=== PATIENT | male | born 1945 | race Caucasian/White ===

== ENCOUNTER → 2017-09-19 08:11 | Outpatient (CLI) | payer MEDICARE, BC, SELFPAY ==
[2017-09-19 08:54] LABS: Absolute Lymphocyte Count 1.43 X10^3/ul (0.83-4.51); Absolute Neutrophil Count 4.1 X10^3/uL (2.0-7.7); Basophil# 0.02 X10^3/uL; Basophil% 0.3 % (0-1); Eosinophil# 0.11 X10^3/uL; Eosinophils% 1.7 % (0-5); Hematocrit 43.1 % (40-54); Hemoglobin 14.2 g/dl (13.0-16.5); Lymphocyte # 1.43 X10^3/ul (4.0); Lymphocyte % 22.7 % (19-41); Mean Corp Hgb Conc 32.9 g/gl (32-36); Mean Corpuscular Hgb 31.9 pg (27.0-32.0); Mean Corpuscular Volume 96.9 fL (80-94); Mean Platelet Vol. 10.7 fl (6.2-12.0); Monocyte# 0.66 X10^3/uL; Monocyte% 10.5 % (0-10); Neutrophil # 4.07 X10^3/uL (2.7-7.7); Neutrophil % 64.6 % (47-70); POSITIVE COUNT NO; POSITIVE DIFFERENTIAL NO; POSITIVE MORPHOLOGY NO; Platelet Count 185 K/mm3 (150-450); RBC Distribution Width CV 14.1 % (11.6-14.6); RBC Distribution Width SD 50.5 fl (35.1-43.9); Red Blood Count 4.45 M/mm3 (4.6-6.2); White Blood Count 6.3 K/mm3 (4.4-11.0)
[2017-09-19 09:22] LABS: ALB/GLOB Ratio 1.2 RATIO (0.9-2.4); AST(SGOT) 19 U/L (15-37); Alanine Aminotransfer ALT/SGPT 29 U/L (16-61); Albumin, Serum 3.7 g/dL (3.2-5.0); Alkaline Phosphatase 55 U/L (45-117); Anion Gap 6 (5-15); BUN 16 mg/dL (7-18); Calcium,Total 8.7 mg/dL (8.5-10.1); Chloride 105 mmol/L (98-107); Cholesterol 193 mg/dL (200); Creatinine, Serum 0.94 mg/dL (0.70-1.30); EST Glomerular Filtration Rate 84 mL/min (>60); Est Glom Filt Rate - Afr Amer 101 mL/min (>60); Globulin 3.2 g/dL (2.2-4.2); Glucose 92 mg/dL (74-106); High Density Lipoprotein 79 mg/dL; Potassium 4.3 mmol/L (3.5-5.1); Protein, Total 6.9 g/dL (6.4-8.2); Sodium Level 139 mmol/L (136-145); Triglycerides 55 mg/dL; Uric Acid 5.4 mg/dL (3.5-7.2); Very Low Density Lipoprotein 11 mg/dL (5-40)
== END ==
LOC: LAB.FUTURE 03-22 00:32 → BFHLAB 04-04 10:33
PROVIDERS: Family Provider Family Medicine; PCP Family Medicine; Visit Provider Family Medicine
DX: Z00.00 Encounter for general adult medical examination without abnormal findings (principal); Z12.5 Encounter for screening for malignant neoplasm of prostate; M10.9 Gout, unspecified; I10 Essential (primary) hypertension
CPT/HCPCS: 36415; 80053; 80061; 84153; 84550; 85025; G0103

== ENCOUNTER → 2018-09-16 06:50 | Outpatient (CLI) | payer MEDICARE, BC, SELFPAY ==
[2018-09-16 07:34] LABS: Absolute Lymphocyte Count 1.71 X10^3/ul (0.83-4.51); Absolute Neutrophil Count 2.5 X10^3/uL (2.0-7.7); Basophil# 0.02 X10^3/uL; Basophil% 0.4 % (0-1); Eosinophil# 0.11 X10^3/uL; Eosinophils% 2.3 % (0-5); Hemoglobin 13.7 g/dl (13.0-16.5); Lymphocyte # 1.71 X10^3/ul (4.0); Lymphocyte % 35.6 % (19-41); Mean Corp Hgb Conc 33.4 g/gl (32-36); Mean Corpuscular Hgb 31.9 pg (27.0-32.0); Mean Corpuscular Volume 95.6 fL (80-94); Mean Platelet Vol. 10.7 fl (6.2-12.0); Monocyte# 0.51 X10^3/uL; Monocyte% 10.6 % (0-10); Neutrophil # 2.45 X10^3/uL (2.7-7.7); Neutrophil % 50.9 % (47-70); Platelet Count 193 K/mm3 (150-450); RBC Distribution Width CV 14.1 % (11.6-14.6); Red Blood Count 4.29 M/mm3 (4.6-6.2); White Blood Count 4.8 K/mm3 (4.4-11.0)
[2018-09-16 07:37] LABS: POSITIVE COUNT NO; POSITIVE DIFFERENTIAL NO; POSITIVE MORPHOLOGY NO
[2018-09-16 08:07] LABS: ALB/GLOB Ratio 1.1 RATIO (0.9-2.4); AST(SGOT) 20 U/L (15-37); Alanine Aminotransfer ALT/SGPT 28 U/L (16-61); Albumin, Serum 3.5 g/dL (3.2-5.0); Alkaline Phosphatase 55 U/L (45-117); Anion Gap 5 (5-15); BUN 15 mg/dL (7-18); BUN/Creat Ratio 13.9 RATIO (10-20); Calcium,Total 8.6 mg/dL (8.5-10.1); Chloride 108 mmol/L (98-107); Cholesterol 187 mg/dL (200); Creatinine, Serum 1.08 mg/dL (0.70-1.30); EST Glomerular Filtration Rate 71 mL/min (>60); Est Glom Filt Rate - Afr Amer 86 mL/min (>60); Globulin 3.2 g/dL (2.2-4.2); Glucose 90 mg/dL (74-106); High Density Lipoprotein 67 mg/dL; PSA,Total - Annual Screen 0.62 ng/mL (0.00-4.00); Potassium 4.2 mmol/L (3.5-5.1); Protein, Total 6.7 g/dL (6.4-8.2); Sodium Level 141 mmol/L (136-145); Thyroid Stim Hormone (TSH) 2.77 uIU/mL (0.358-3.74); Triglycerides 114 mg/dL; Very Low Density Lipoprotein 23 mg/dL (5-40)
== END ==
PROVIDERS: Family Provider Family Medicine; PCP Family Medicine; Referring Provider Family Medicine; Visit Provider Family Medicine
DX: I10 Essential (primary) hypertension (principal); M10.9 Gout, unspecified; E01.0 Iodine-deficiency related diffuse (endemic) goiter; Z12.5 Encounter for screening for malignant neoplasm of prostate
CPT/HCPCS: 36415; 80053; 80061; 84153; 84443; 84550; 85025; G0103

== ENCOUNTER → 2019-06-12 08:53 | Outpatient (CLI) | payer MEDICARE, BC, SELFPAY ==
--- NOTE | 2019-06-12 08:56 | RAD_ITS ---
STUDY: X-RAY - LEFT KNEE REASON FOR EXAM: Male, 73 years old. CHRONIC MEDIAL PAIN TECHNIQUE: 4 view(s) of the knee. COMPARISON: Prior study of July 08, 2014 FINDINGS: Normal visualized distal femur. Normal visualized proximal tibia and fibula. Normal proximal tibiofibular articulation. There are moderately severe degenerative changes with severe joint space narrowing of the medial knee compartment. Normal lateral femorotibial compartment. There is mild degenerative arthrosis of the patellofemoral articulation. There is a soft tissue prominence in the suprapatellar region suggesting a small volume joint effusion. The soft tissue structures are unremarkable. RAD/Knee 4 or More Views IMPRESSION: Degenerative changes with severe joint space narrowing of the medial knee compartment. Findings have worsened in the interval. Mild degenerative changes of the patellofemoral compartment. Small suprapatellar effusion. Electronically Signed: Rajendra Parks MD at 17:42 EST , Service support ,
== END ==
PROVIDERS: PCP Family Medicine; Visit Provider Family Medicine
DX: M17.12 Unilateral primary osteoarthritis, left knee (principal)
CPT/HCPCS: 73564

== ENCOUNTER → 2019-08-11 10:00 | Outpatient (CLI) | payer MEDICARE, BC, SELFPAY ==
--- NOTE | 2019-08-08 08:06 | PCM.HP.BLA ---
History and Physical History and Physical [facility] Patient Name: Butch Galvez : 1945 From: GOOD RODRÍGUZE PA-C DATE OF SURGERY: 08/20/2019 SCHEDULED PROCEDURE: left total knee arthroplasty HISTORY OF PRESENT ILLNESS: Preoperative history and physical exam was performed on August 07, 2019. This is a 74-year-old male who has been having ongoing pain and in his left knee for several years. He states it has been progressively becoming worse. Pain is a 5/10. Pain is increased with going up and down stairs, driving, walking, standing. Patient's pain is primarily of the medial aspect of the knee. Pain does waken him at night. Patient has had previous conservative measures consisting of aspiration and cortisone injection previous bracing. Patient does report clicking and cracking sensation with walking. Patient works out 3 times a week at [facility]. Patient currently denies any recent chest pain, shortness breath, fevers chills, recent infections. Patient has medical history pertinent for hypertension. We'll obtain surgical clearance from the primary care physician Dr. Lantigua. After failing conservative measures and discussing treatment options a Dr. Robbie Andrews, the patient does wish to proceed with a left total knee arthroplasty. REVIEW OF SYSTEMS: ROS: Const: Denies anorexia, anxiety, change in appetite, fever and weight change,and vision problems. CV: Denies chest pain, heart murmur, irregular heartbeat and peripheral vascular disease. Resp: Denies asthma, cough, pneumonia, sleep apnea, shortness of breath, tuberculosis and wheezing. GI: Denies constipation, diarrhea, heartburn, nausea, bloody stools and vomiting, and difficulty swallowing. : Denies incontinence. Musculo: Denies weakness and limp. Reports leg swelling, trouble walking. Skin: Denies Raynaud's, history of shingles and tattoo. Neuro: Denies ambulatory dysfunction, dizziness, numbness/tingling and tremor. Psych: Denies anxiety, depression, insomnia, mental illness and stress. Mata/Lymph: Denies anemia, bleeding/bruising tendency and past transfusion. Reviewed and updated. PAST MEDICAL HISTORY: Advance Care Plan: No Advance Directives Effective Date: 07/10/2019 PMH: Medical Problems: Gout - occasional High Blood Pressure Accidents: Fracture - (2005) LT ANKLE Surgical Hx: None Anesthesia Complications: None Assistive Devices: Hearing Aid Reviewed and updated. 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 Personal Habits: Cigarette Use: Former.Smokeless Tobacco: Never Used Smokeless Tobacco.E-Cigarette Use: Never used.Alcohol: Occasionally.Drug Use: Denies Use.Enjoy Exercising: Exercises 1-3 X/Week. Reviewed and updated. VITALS: Ht: 66 Wt: 210lb 2oz Wt k.313 BMI: 33.9 BP: 130/78 Pulse: 76 Resp: 20 T: 98.3 T: 36.8C ALLERGIES: No Known Drug Allergy MEDICATIONS: Metoprolol Succinate ER 25 mg 1 by mouth every day, Lisinopril 5 mg 1 by mouth every day, Allopurinol 100 mg 1 by mouth every day, Move Free Joint Health Advanced 1 by mouth DAILY, Vitamin D3 1000 Unit 1x/day by mouth PRE-OP EXAM: General appearance:NORMAL Other: Eyes: Conjunctivae and lids: NORMAL Pupils: ERR Ears, Nose, Mouth, and Throat: NORMAL Other: Inspection of lips, teeth and gums: NORMAL Other: Neck: Examination of neck: no masses noted. Respiratory: Assessment of respiratory effort: NORMAL Other: Auscultation of lungs: clear to auscultation no wheezes, rhonchi or rales. Cardiovascular: Auscultation of heart: regular rate and rhythm, no murmurs, gallops or rubs. Exam of carotid arteries: NORMAL Other: Gastrointestinal: Exam of abdomen: soft, nontender, nondistended bowel sounds present. PHYSICAL EXAMINATION: Patient walks with an antalgic gait. Patient has varus deformity. Left knee is cool to touch without erythema. There is tenderness to palpation over the medial joint line. Positive effusion. Correctable varus alignment. Stable to varus and valgus stress test. Range of motion with the left knee: 0 of extension and 110 flexion. IMAGING STUDIES: X-rays of the left knee reveal varus alignment with medial joint space narrowing, subchondral sclerosis, osteophyte formation consistent with left knee osteoarthritis. IMPRESSION: 1. Left knee osteoarthritis 2. Hypertension 3. History of gout PLAN: Dr. Robbie Andrews did discuss and review with the patient all treatment options including surgical versus nonsurgical options. Patient does wish to proceed with the above-stated procedure. Potential risks, benefits, and complications of the procedure were discussed in detail including but not limited to , infection, nerve and blood vessel damage, persistent pain, numbness, tingling, paresthesias, blood clot, pulmonary embolism, and requirement for possible further surgery. The patient expressed full understanding and has no further questions for the doctor. Patient does agree to proceed with the above-stated procedure and has signed the surgery consent form. This dictation was created using voice recognition software. Phonetic and/or grammatical errors may exist. ___ I have re-examined the patient. There are no clinical changes since date of exam. ___ See progress notes for changes. ___ Dictated on admission Date: Time: Signature:
[2019-08-11 09:58] VITALS: BP 149/89; PULSE 66; RESP 16; TEMP 36.7; O2SAT 97; BMI 34.4
[2019-08-11 10:44] LABS: Absolute Lymphocyte Count 1.53 X10^3/uL (0.83-4.51); Absolute Neutrophil Count 3.7 X10^3/uL (2.0-7.7); Basophil# 0.04 X10^3/uL; Basophil% 0.7 % (0-1); Eosinophil# 0.11 X10^3/uL; Eosinophils% 1.9 % (0-5); Hematocrit 41.9 % (40-54); Hemoglobin 13.8 g/dL (13.0-16.5); Lymphocyte # 1.53 X10^3/ul (4.0); Lymphocyte % 25.9 % (19-41); Mean Corp Hgb Conc 32.9 g/dL (32-36); Mean Corpuscular Hgb 32.2 pg (27.0-32.0); Mean Corpuscular Volume 97.7 fL (80-94); Mean Platelet Vol. 10.7 fl (6.2-12.0); Monocyte# 0.51 X10^3/uL; Monocyte% 8.6 % (0-10); NRBC Flagged by Analyzer 0 % (0-5); Neutrophil # 3.71 X10^3/uL (2.7-7.7); Neutrophil % 62.7 % (47-70); Platelet Count 199 K/mm3 (150-450); RBC Distribution Width CV 13.2 % (11.6-14.6); Red Blood Count 4.29 M/mm3 (4.6-6.2); White Blood Count 5.9 K/mm3 (4.4-11.0)
[2019-08-11 11:19] LABS: Anion Gap 5 (5-15); BUN 23 mg/dL (7-18); BUN/Creat Ratio 21.5 RATIO (10-20); Calcium,Total 8.7 mg/dL (8.5-10.1); Chloride 107 mmol/L (98-107); Creatinine, Serum 1.07 mg/dL (0.70-1.30); EST Glomerular Filtration Rate 72 mL/min (>60); Est Glom Filt Rate - Afr Amer 87 mL/min (>60); Estimated Creatinine Clearance 53.83 ml/min; Glucose 93 mg/dL (74-106); Potassium 4.3 mmol/L (3.5-5.1); Sodium Level 141 mmol/L (136-145)
== END ==
PROVIDERS: PCP Family Medicine; Referring Provider Specialist; Visit Provider Specialist
DX: Z01.818 Encounter for other preprocedural examination (principal); M17.12 Unilateral primary osteoarthritis, left knee
CPT/HCPCS: 80048; 85025; 87081

== ENCOUNTER → 2019-08-11 10:34 | Outpatient (CLI) | payer MEDICARE, BC, SELFPAY ==
--- NOTE | 2019-08-11 10:37 | CT_ITS ---
STUDY: CT SCAN LOWER EXTREMITY LEFT REASON FOR EXAM: Male, 74 years old. Left knee varus deformity, pre-op PAULETTE plasty planning. No prior surgery. RADIATION DOSAGE (If Supplied By Facility): CTDIvol = ( 33.49 ) mGy, DLP = ( 2044.93 ) mGycm. Individualized dose optimization techniques were used for this CT.? TECHNIQUE: Multiple axial tomographic images of the hip joint, knee joint and ankle joint were obtained. Coronal and sagittal reconstructions obtained as well. COMPARISON: None. FINDINGS: There is evidence of calcific tendinitis overlying the greater tuberosity of the hip. There is a marked degree of joint space narrowing with spur formation of the medial compartment of the knee joint. Mild to moderate degree of degenerative changes of the patellofemoral joint. The ankle mortise is intact. Findings suggestive of old avulsion fracture of the medial malleolus. Incidental note is made of calcaneal spurs. CT/Extremity Lower without Contra IMPRESSION: Marked degree of a joint space narrowing and degenerative spurring along the medial compartment of the knee joint as well as moderate degree of osteoarthritis of the patellofemoral joint. Electronically Signed: Samuel Alcantara, at 14:08 EDT , Service support ,
== END ==
PROVIDERS: PCP Family Medicine; Referring Provider Specialist; Visit Provider Specialist
DX: M21.162 Varus deformity, not elsewhere classified, left knee (principal)
CPT/HCPCS: 73700

== ENCOUNTER 2019-10-01 08:18 | Day surgery (SDC) | payer MEDICARE, BC, SELFPAY ==
[2019-08-11 09:58] VITALS: BMI 34.4
--- NOTE | 2019-09-24 16:52 | PCM.HP.BLA ---
History and Physical History and Physical Patient Name: Butch Galvez : 1945 From: REBEKAH GRANDA NP DATE OF SURGERY: 10/01/2019 SCHEDULED PROCEDURE: Left total knee arthroplasty HISTORY OF PRESENT ILLNESS: Preoperative history and physical exam was performed on September 24, 2019. This 4-year-old male who has been having ongoing left knee pain for several years. He states it has been progressively becoming worse. The pain is 5 on a scale of 10. The pain is increased with going up and down stairs, driving, walking and standing. The pain is located in the medial aspect of the left knee. The pain does wake him at night. The patient does report clicking and cracking sensation with walking. The patient works out 3 times a week at [facility]. Previous treatments consist of aspiration and cortisone injections. He has attempted bracing. The patient currently denies chest pain, shortness of breath, fevers, chills or recent infections. The patient has a medical history pertinent for hypertension. Surgical clearance has been obtained from his primary care physician, Dr. Lantigua. After failing conservative measures and discussing treatment options with Dr. Robbie Andrews the patient does wish to proceed with a left total knee arthroplasty. REVIEW OF SYSTEMS: ROS: Const: Denies anorexia, anxiety, change in appetite, fever and weight change,and vision problems. CV: Denies chest pain, heart murmur, irregular heartbeat and peripheral vascular disease. Resp: Denies asthma, cough, pneumonia, sleep apnea, shortness of breath, tuberculosis and wheezing. GI: Denies constipation, diarrhea, heartburn, nausea, bloody stools and vomiting, and difficulty swallowing. : Denies incontinence. Musculo: Denies weakness and limp. Reports leg swelling, trouble walking. Skin: Denies Raynaud's, history of shingles and tattoo. Neuro: Denies ambulatory dysfunction, dizziness, numbness/tingling and tremor. Psych: Denies anxiety, depression, insomnia, mental illness and stress. Mata/Lymph: Denies anemia, bleeding/bruising tendency and past transfusion. 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 Personal Habits: Cigarette Use: Former.Smokeless Tobacco: Never Used Smokeless Tobacco.E-Cigarette Use: Never used.Alcohol: Occasionally.Drug Use: Denies Use.Enjoy Exercising: Exercises 1-3 X/Week. Reviewed, no changes - 09/24/2019 at 4:11 pm by Rebekah Granda VITALS: Ht: 66 Wt: 208lb Wt k.349 BMI: 33.6 BP: 137/81 Pulse: 71 Resp: 18 T: 97.7 T: 36.5C ALLERGIES: No Known Drug Allergy MEDICATIONS: Oxycodone HCL 5 mg 1-2 tab by mouth every 4 hours, Meloxicam 7.5 mg 1 by mouth twice a day, Promethazine HCL 12.5 mg 1-2 tablets by mouth every 6 hours, Famotidine 20 mg 1 by mouth every day, Metoprolol Succinate ER 25 mg 1 by mouth every day, Lisinopril 5 mg 1 by mouth every day, Allopurinol 100 mg 1 by mouth every day, Move Free Joint Health Advanced 1 by mouth DAILY, Vitamin D3 1000 Unit 1x/day by mouth PRE-OP EXAM: General appearance:NORMAL Other: Eyes: Conjunctivae and lids: NORMAL Pupils: ERR Ears, Nose, Mouth, and Throat: NORMAL Other: Inspection of lips, teeth and gums: NORMAL Other: Respiratory: Assessment of respiratory effort: NORMAL Other: Auscultation of lungs: clear to auscultation no wheezes, rhonchi or rales. Cardiovascular: Auscultation of heart: regular rate and rhythm, no murmurs, gallops or rubs. Gastrointestinal: Exam of abdomen: soft, nontender, nondistended bowel sounds present. Neurological: see below Psychiatric: Orientation to time, place and person: NORMAL Other: Mood and affect: NORMAL Other: PHYSICAL EXAMINATION: The patient walks with an antalgic gait. Patient has varus deformity. Left knee is cool to touch without erythema. Tenderness to palpation over the medial joint line. Positive effusion. Correctable varus alignment. Stable to varus valgus stress test. Range of motion: 0 extension to 110 flexion. IMAGING STUDIES: X-rays of left knee obtained on June 12, 2019 reveal varus alignment with medial joint space narrowing, subchondral sclerosis, osteophyte formation consistent with left knee osteoarthritis. IMPRESSION: 1. Left knee osteoarthritis 2. Hypertension 3. History of gout PLAN: Dr. Robbie Andrews did discuss with patient all treatment options including surgical versus nonsurgical options. The patient does wish to proceed with a left total knee arthroplasty. Potential risk, benefits and complications of the procedure were discussed in detail including but not limited to , infection, nerve and blood vessel damage, persistent pain, numbness, tingling, paresthesias, blood clot, pulmonary embolism and requirement for possible further surgery. The patient expressed full understanding and has no further questions for the doctor. The patient does agree to proceed with the above-stated procedure and has signed the surgery consent form. Discussed with the patient the current risk associated with the COVID-19 virus includes risk of exposure while at the hospital. The patient was reassured local hospitals have low infection rates and have taken all necessary precautions to limit patient exposure to COVID-19. Limiting the patient's time in the hospital may decrease their exposure to COVID-19. Patient was notified that we will need to comply with any screening or testing the hospital wishes to perform or that surgery may be delayed for any positive results. This dictation was created using voice recognition software. Phonetic and/or grammatical errors may exist. ___ I have re-examined the patient. There are no clinical changes since date of exam. ___ See progress notes for changes. ___ Dictated on admission Date: Time: Signature:
[2019-10-01] VITALS (9 sets, daily range): BP systolic 128–149; BP diastolic 75–85; PULSE 66–80; RESP 16; TEMP 35.8–37.1; O2SAT 96–100; BMI 33.9
[2019-10-01] MEDS: Lactated Ringers 1,000 ML 125 ML IV (07:00)
[2019-10-01] MEDS: Lactated Ringers 1,000 ML 999 ML IV ×2 (07:00→09:06)
--- NOTE | 2019-10-01 07:18 | RAD_ITS ---
STUDY: X-RAY - LEFT KNEE REASON FOR EXAM: Male, 74 years old. Post op tkr TECHNIQUE: AP and lateral view(s) of the knee. COMPARISON: Comparison is made with prior study dated December 11, 2019. FINDINGS: Normal visualized distal femur. Normal visualized proximal tibia and fibula. Normal proximal tibiofibular articulation. The patient is status post total knee replacement. There is good alignment. Postoperative soft tissue changes. RAD/Knee 1 or 2 Views IMPRESSION: Status post total knee replacement. There is good alignment. Postoperative soft tissue swelling. Electronically Signed: Samuel Alcantara, at 13:55 EDT , Service support ,
[2019-10-01 08:55] LABS: Bedside Glucose 69 mg/dL (70-110)
[2019-10-01] MEDS: Acetaminophen 500 MG Tablet 1000 MG PO (09:04)
[2019-10-01] MEDS: Gabapentin 600 MG Tablet PO (09:05)
[2019-10-01] MEDS: Celecoxib 200 MG Capsule 400 MG PO (09:05)
[2019-10-01] MEDS: Lactated Ringers 1,000 ML 75 ML IV (09:55)
[2019-10-01] MEDS: Cefazolin 2 GM in 0.9% Normal Saline 100 ML IV (10:55)
--- NOTE | 2019-10-01 12:23 | OP.PCM_ITS ---
Report of Operation Date of Procedure: 10/01/19 Pre-Operative Diagnosis: Left knee primary osteoarthritis Post-Operative Diagnosis: Left knee primary osteoarthritis Surgery/Procedure Performed:: Left knee minimally invasive robotic assisted total knee replacement Description of Surgical Findings:: Stable knee with good patella tracking sales development representative: Laisha Keane Type of Anesthesia:: Spinal Anesthesiologist: Thom Maxwell Special Medications: 2 g Ancef, 1 g TXA at incision, 1 g TXA closure, 10 mg Decadron, joint cocktail (5 mg Duramorph, 30 mL of 0.5% Ropivicaine, 1000 units of epinephrine, 30 mg of Toradol) Specimen's removed: Bony cuts Estimated Blood Loss (mL): 75 Fluids Replaced: 1200 mL crystalloid Description of Procedure: Implants used: 1. Melanie size 4 triathlon cruciate retaining distal femoral press-fit component 2. Ranger size 5 press-fit tritanium tibial baseplate 3. Ranger X3 9 mm CS polyethylene 4. Ranger X3 35 mm asymmetric patella Brief history operative indications: 74-year-old m with history of left knee osteoarthritis with radiographic findings with loss of joint space, osteophyte formation and subchondral sclerosis. Failed conservative measures as mentioned in the H&P. Discussion of total knee arthroplasty as well as risk and benefits were discussed the patient including but not limited to blood loss, DVTs, PEs, neurovascular damage, general risk of anesthesia including loss of life, and stiffness or instability were discussed with patient. Patient demonstrated understanding and was able to sign informed consent. Procedure: On the date of procedure patient's left lower extremity was marked in the preoperative area. The patient was then taken back to the operating room where the patient was placed on the table in the supine position. All bony prominences were identified a well-padded. Anesthesia assumed control of the C-spine and airway and remained controlled throughout the remainder of the procedure. A tourniquet was placed on the left upper thigh and the leg was prepped in a sterile fashion. The surgeon then scrubbed at this time .Upon reentering the room left lower extremity was draped in a standard orthopedic fashion. A timeout was then called and everyone agreed upon the side, the site, the procedure to be performed, patient's identity and antibiotics given. Esmarch bandage was used to exsanguinate the extremity and the tourniquet was placed up to 250 mmHg with the knee in flexion. A midline skin incision was made and sharp dissection was taken down through skin subcutaneous tissue and fat. The standard medial parapatellar incision was made and the patella was subluxed laterally. An Appropriate deep MCL release was done and the fat pad was resected. Our attention was then directed to the patella. The patella was everted and a flat resection was made. The knee was then flexed up in 2 femoral pins were placed inside the incision and 2 tibial pins were placed outside the incision in the medial tibia bicortically. Once this was completed the 2 checkpoints in the femur and tibia were placed. Knee was then flexed up and the bony landmarks were registered. Once this was completed knee was taken through range of motion and manually stressed allowing us to a plan for an appropriate tibial cut. The robotic arm was brought into the field sterilely and checkpoint and saw were registered. Based on the patient's deformity the tibial cut was made in 3 degrees varus. At this time the tensioner was then placed in the joint and ligament tension was checked at 90 degrees and full extension. Based on the patient's ligamentous tension appropriate adjustments were made to the operative plan and ligament releases were done. Once we were happy with our operative plan with balanced flexion and extension gaps our attention was directed to the femur. The robot was brought into the field sterilely and registered. Posterior condylar cuts, anterior chamfer cuts and anterior cuts were appropriately made for a size 4 femur. When these were completed the saws were switched out in the distal femoral and posterior chamfer cuts were made. Protecting the soft tissue throughout this time. A size 5 tibial base plate was selected. the knee was flexed to 90 degrees and the soft tissues and posterior osteophytes were removed from the joint. 40 cc of the periarticular injection was injected into the posterior medial corner of the joint. The appropriate trials were then placed on the femur and tibia. A trial polyethylene was trialed to ensure proper balancing and stability of the knee. The appropriate tibial internal rotation was then marked with a bovie. Our attention was then directed to the patella. The lug holes were drilled and the patella trial was placed. Patellar tracking was checked and deemed appropriate. Once we were happy lug holes were drilled for the femur and trial components were removed. the tibia was subluxed and pinned into place and the keel was punched and drilled appropriately. Final components were verified and opened, and cement was mixed in a vacuum. Ranger Simplex cement was used. The wound was copiously irrigated with normal saline. When the cement was ready the components were impacted into place starting with the tibia, femur and finally cementing the patella. The trial poly component was placed and the knee was placed in full extension. All excess cement was removed in the process. Once the cement had cured the tracking, alignment and balance were verified and a size 9 mm CS polyethylene component was placed. Once the final components were placed an Irrisept lavage was performed and the w ound was copiously irrigated with normal saline solution and the periarticular injection was given. The wound was closed in a layer damico fashion using #1 vicryl interrupted sutures for the arthrotomy, 2-0 interrupted Vicryl suture for the subcuticular layer and shelley for final skin closure. A sterile compressive dressing was then placed. The patient was then awakened from anesthesia, transferred to the [place] and transferred to the PACU for recovery. Post op plan DVT ppx: ASA 81mg BID, thigh high compression stockings Follow up: in office in 2 weeks for wound check PT: to start POD #0 at hospital, outpatient PT should be arranged. Plan is for patient have outpatient surgery today. Grafts/Implants Used: Melanie - Complications No intraoperative complications - Admit VTE Documentation VTE Present on Admission: No VTE Mechan Device Prophylaxis: SCD's, Thigh High TANIA Hose VTE Pharm Prophylaxis ordered?: Yes - You call the family
[2019-10-01] MEDS: Cefazolin 1 GM/50 ML BAG IV (15:15)
== END 2019-10-01 16:37 | disposition home or self-care (01) ==
LOC: SDC 08:20 → AC 08:21
PROVIDERS: PCP Family Medicine; Referring Provider Specialist; Visit Provider Specialist
PROC: 0SRD0JZ Replacement of Left Knee Joint with Synthetic Substitute, Open Approach (ICD-10-PCS; CPT 27447; principal; 2019-10-01 10:00)
DX: M17.12 Unilateral primary osteoarthritis, left knee (principal); I10 Essential (primary) hypertension; M10.9 Gout, unspecified; Z79.899 Other long term (current) drug therapy; Z87.891 Personal history of nicotine dependence
CPT/HCPCS: 01402; 27447; 64447; 76942; 73560; 82962; 97162; 97166; C1776; J7120

== ENCOUNTER 2019-11-21 09:55 | Outpatient (RCR) | payer MEDICARE, BC, SELFPAY ==
[2019-10-01 08:57] VITALS: BMI 33.9
== END 2019-11-21 19:00 | disposition home or self-care (01) ==
LOC: PT 09:55
PROVIDERS: PCP Family Medicine; Referring Provider Specialist; Visit Provider Specialist
DX: M62.562 Muscle wasting and atrophy, not elsewhere classified, left lower leg (principal); Z96.652 Presence of left artificial knee joint; R53.1 Weakness

== ENCOUNTER 2020-02-16 11:00 | Outpatient (RCR) | payer MEDICARE, BC, SELFPAY ==
[2019-10-01 08:57] VITALS: BMI 33.9
--- NOTE | 2020-02-17 09:55 | HP.PTEVAL_ITS ---
Patient's Visit Information SUJIT MCLEAN is a 74 year old M referred to Physical Therapy by JEAN Dalton with a diagnosis of Presence of L TKA. Date of Evaluation: 01/13/20 Physical Therapist: Clem Neal DPT - Visit Plan Frequency: 3x /Week Duration: 4 Weeks Plan: Pt. to be DC back to physician at this point in time. Pt. to be DC to HEP and gym exercises. - Subjective Pt. is here today for his initial evaluation with diagnosis of presence of artificial joint, L knee. Pt. had a arthroplasty in early september. Pt. reports overall doing well, but is still having increased pain with his initially movements. Pt. did her stint in his therapy with good progress, but started to have increased symptoms since progressing onto his own. Pt. reports continued gym exercises and exercises at home. Pt. reports increased pain with initial movements, but tends to get better after walking. He reports most of his pain is at medial knee both anteriorly and posteriorly. Pt. is hopfeul to reduce his symptoms in order to get back to all recreational and household work without increase in symptoms. - Pain L knee Pain Intensity (Out of 10): 1 Pain Intensity Range: 0, 8 Comment: 4/10 with the initial few steps with walking. - Objective POSTURE: Pt. has increased lateral wt. shifting to R side in stance. He has slight knee flexion of L knee in stance as well. He is able to extend his knee to full motion, but has increased pain doing so. PALPATION: PT. has slight tenderness at medial joint line and at posterior popliteal fossa. He has a marked difference in muscle girth from L to R of both thigh and calves. 1inch difference in gith between the two (L smaller). NEURO: Pt. has normal sensation and achilles DTR bilaterally. Pt. is able to complete heel and radha raises, but does have increased difficulty with LLE and mild increase in symptoms. ROM: L knee- 0-4-110deg. I was able to get him to full TKE with over pressure, but did have increased pain during this. Leather endfeel with knee flexion as well. TIght HS noted bilaterally. MMT: RLE- 5/5 throughout; except 4/5 hip abd and hip extension. LLE- ankle- 5/5 throughotu; except PF 4+/5- (fatigues rapidly), knee- ext 4+/5, flexion 4/5 mild increase NW; hip- flexion 4+/5, abd 4/5. GAIT: Pt. lacks TKE during stance phase on LLE, minimal heel strike iwth initial contact. Pt. has minimal push off with preswing. Pt. has antalgic pattern during L stance phase. STAIRS: Pt. has marked functional weakness during descending and ascending steps with L loading phases. - Goals Goal 1:: LTG: Pt. to be I with HEP. Goal Time Frame: 2-4 Weeks Goal 2:: STG: Pt. to have L knee ROM 0-0-120deg without increase in symptoms. Goal Time Frame: 2-4 Weeks Goal 3:: LTG: Pt. to ambulate unlimited distances without antalgic pattern or increase in symptoms. Goal Time Frame: 4-6 Weeks Goal 4:: LTG: Pt. negotiate steps with 1 HR with Goal Time Frame: 4-6 Weeks - Rehabilitation Potential Physical Therapy Diagnosis: Pt. has signs and symptoms consistent with previous L TKA. Pt. has some marked hypomobility, slight into extension and ~10deg into flexion. Pt. has marked weakness as well with girth discrepencies between his two legs. Pt. would benefit from PT to work on above limiations progressing gait and his tolerance to all gym and working activies. Rehabilitation Potential: Good - Anticipated Interventions Patient/Client Instruction: Educate patient on: Condition, Plan of Care, Risk Factors, Benefits of Fitness Program For the Purpose of:: To foster healthy habits, To improve decision making, To facilitate caregiver knowledge, To improve self management, To prevent re- injury, To improve ability to perform tasks related to life management, To improve tolerance to ADL's Therapeutic Exercise to Include: Strength training, Power training, Postural training, Flexibilty training, Gait and locomotor training, Passive ROM, Active ROM For the Purpose of:: To decrease pain, To decrease swelling/inflammation, To increase ROM, To improve nutrient delivery to tissue, To increase oxygenation perfusion, To improve muscle performance and motor function, To improve ability to perform ADL's, To increase tolerance to activity/condition/position, To improve performance and independence with ADL's, To increase flexibility/ROM Cryotherapy (ice pack, ice massage): Yes Thermo therapy (hot pack): Yes For the Purpose of:: To decrease pain, To decrease swelling/inflammation, To increase ROM, To improve nutrient delivery to tissue Thank you for the opportunity to evaluate your patient. For Medicare and Medicare HMO plans, please review the plan of care and approve it. It will need to be FAXED BACK to us at [phone] for Medicare purposes. For Medicare only, by signing this I certify the plan of care. Please let me know if there are questions or concerns regarding this plan of care. Physician Signature: Date:
--- NOTE | 2020-02-17 09:57 | HP.PTEVAL ---
Patient's Visit Information SUJIT MCLEAN is a 74 year old M referred to Physical Therapy by JEAN Dalton with a diagnosis of Presence of L TKA. Date of Evaluation: 01/13/20 Physical Therapist: Clem Neal DPT - Visit Plan Frequency: 3x /Week Duration: 4 Weeks - Subjective Pt. is here today for his initial evaluation with diagnosis of presence of artificial joint, L knee. Pt. had a arthroplasty in early september. Pt. reports overall doing well, but is still having increased pain with his initially movements. Pt. did her stint in his therapy with good progress, but started to have increased symptoms since progressing onto his own. Pt. reports continued gym exercises and exercises at home. Pt. reports increased pain with initial movements, but tends to get better after walking. He reports most of his pain is at medial knee both anteriorly and posteriorly. Pt. is hopfeul to reduce his symptoms in order to get back to all recreational and household work without increase in symptoms. - Pain L knee Pain Intensity (Out of 10): 1 Pain Intensity Range: 0, 8 Comment: 4/10 with the initial few steps with walking. - Objective POSTURE: Pt. has increased lateral wt. shifting to R side in stance. He has slight knee flexion of L knee in stance as well. He is able to extend his knee to full motion, but has increased pain doing so. PALPATION: PT. has slight tenderness at medial joint line and at posterior popliteal fossa. He has a marked difference in muscle girth from L to R of both thigh and calves. 1inch difference in gith between the two (L smaller). NEURO: Pt. has normal sensation and achilles DTR bilaterally. Pt. is able to complete heel and radha raises, but does have increased difficulty with LLE and mild increase in symptoms. ROM: L knee- 0-4-110deg. I was able to get him to full TKE with over pressure, but did have increased pain during this. Leather endfeel with knee flexion as well. TIght HS noted bilaterally. MMT: RLE- 5/5 throughout; except 4/5 hip abd and hip extension. LLE- ankle- 5/5 throughotu; except PF 4+/5- (fatigues rapidly), knee- ext 4+/5, flexion 4/5 mild increase NW; hip- flexion 4+/5, abd 4/5. GAIT: Pt. lacks TKE during stance phase on LLE, minimal heel strike iwth initial contact. Pt. has minimal push off with preswing. Pt. has antalgic pattern during L stance phase. STAIRS: Pt. has marked functional weakness during descending and ascending steps with L loading phases. - Goals Goal 1:: LTG: Pt. to be I with HEP. Goal Time Frame: 2-4 Weeks Goal 2:: STG: Pt. to have L knee ROM 0-0-120deg without increase in symptoms. Goal Time Frame: 2-4 Weeks Goal 3:: LTG: Pt. to ambulate unlimited distances without antalgic pattern or increase in symptoms. Goal Time Frame: 4-6 Weeks Goal 4:: LTG: Pt. negotiate steps with 1 HR with Goal Time Frame: 4-6 Weeks - Rehabilitation Potential Physical Therapy Diagnosis: Pt. has signs and symptoms consistent with previous L TKA. Pt. has some marked hypomobility, slight into extension and ~10deg into flexion. Pt. has marked weakness as well with girth discrepencies between his two legs. Pt. would benefit from PT to work on above limiations progressing gait and his tolerance to all gym and working activies. Rehabilitation Potential: Good - Anticipated Interventions Patient/Client Instruction: Educate patient on: Condition, Plan of Care, Risk Factors, Benefits of Fitness Program For the Purpose of:: To foster healthy habits, To improve decision making, To facilitate caregiver knowledge, To improve self management, To prevent re-injury, To improve ability to perform tasks related to life management, To improve tolerance to ADL's Therapeutic Exercise to Include: Strength training, Power training, Postural training, Flexibilty training, Gait and locomotor training, Passive ROM, Active ROM For the Purpose of:: To decrease pain, To decrease swelling/inflammation, To increase ROM, To improve nutrient delivery to tissue, To increase oxygenation perfusion, To improve muscle performance and motor function, To improve ability to perform ADL's, To increase tolerance to activity/condition/position, To improve performance and independence with ADL's, To increase flexibility/ROM Cryotherapy (ice pack, ice massage): Yes Thermo therapy (hot pack): Yes For the Purpose of:: To decrease pain, To decrease swelling/inflammation, To increase ROM, To improve nutrient delivery to tissue Thank you for the opportunity to evaluate your patient. For Medicare and Medicare HMO plans, please review the plan of care and approve it. It will need to be FAXED BACK to us at [phone] for Medicare purposes. For Medicare only, by signing this I certify the plan of care. Please let me know if there are questions or concerns regarding this plan of care. Physician Signature: Date:
--- NOTE | 2020-02-17 09:57 | HP.PTDCSUM ---
It has been my pleasure to treat SUJIT MCLEAN referred by JEAN Dalton, with the diagnosis of Presence of L TKA for a total of 12 visit(s). Discharge Date: Please see the following information for a summary of their discharge status. Subjective: Pt. reports still having some pain, especially with initially getting up after sitting and the first few steps with walking. He reports being 25% better. He is HEP compliant. His biggest conserns is that his knee clicks and the pain he has with his initall few steps. L knee Pain Intensity (Out of 10): 1 % Improvement: 25 Objective/Function: ROM: L knee: 0-5-119deg. Pt. continues to have increased soreness with knee extension. Pt. has improved knee extension with stretching, but still is lacking TKE. Pt. also tends to ER his hip due to medial knee pain with neutral hip positioning. Pt. reports medial joint line pain with any twisting or hip IR motions. MMT: 5/5 throughout, except, L ankle PF 4+/5- fatigue rapidly as well. He also has decraesed stength with extension at ~90-110 deg of flexion. P. GAIT: Pt. ambulates without AD. Pt. lacks TKE during stance phase on LLE. Pt. has increased pain with initial 5-10steps, improves with increased pain. STAIRS: Pt. is able to negotiate with 1 HR with reciprocal pattern, mild increase in pain with descending and difficulty with pushing off during ascending. He is independent with program for gym. Pt. Goal 1:: LTG: Pt. to be I with HEP. Goal Progress: Goal Met Goal 2:: STG: Pt. to have L knee ROM 0-0-120deg without increase in symptoms. Goal Progress: Progressing Goal 3:: LTG: Pt. to ambulate unlimited distances without antalgic pattern or increase in symptoms. Goal Progress: Progressing Goal 4:: LTG: Pt. negotiate steps with 1 HR with Goal Progress: Goal Met Plan: Pt. to be DC back to physician at this point in time. Pt. to be DC to HEP and gym exercises. If there are questions or concerns regarding this patient's physical therapy, please feel free to call me at [phone]. Thank you for the referral of this patient. Sincerely, ABE RyderT
== END 2020-02-16 19:00 | disposition home or self-care (01) ==
LOC: PT 11:00
PROVIDERS: PCP Family Medicine; Visit Provider Registered Nurse
DX: M17.12 Unilateral primary osteoarthritis, left knee (principal); M21.162 Varus deformity, not elsewhere classified, left knee
CPT/HCPCS: 97110; 97161; 97164

== ENCOUNTER → 2020-03-30 06:57 | Outpatient (CLI) | payer MEDICARE, BC, SELFPAY ==
[2019-10-01 08:57] VITALS: BMI 33.9
[2020-03-30 08:02] LABS: Absolute Lymphocyte Count 1.87 X10^3/uL (0.83-4.51); Absolute Neutrophil Count 2.8 X10^3/uL (2.0-7.7); Basophil# 0.05 X10^3/uL; Basophil% 0.9 % (0-1); Eosinophil# 0.15 X10^3/uL; Eosinophils% 2.8 % (0-5); Hematocrit 43.6 % (40-54); Hemoglobin 13.9 g/dL (13.0-16.5); Lymphocyte # 1.87 X10^3/ul (4.0); Lymphocyte % 34.9 % (19-41); Mean Corp Hgb Conc 31.9 g/dL (32-36); Mean Corpuscular Hgb 31.2 pg (27.0-32.0); Mean Platelet Vol. 10.5 fl (6.2-12.0); Monocyte# 0.51 X10^3/uL; Monocyte% 9.5 % (0-10); NRBC Flagged by Analyzer 0 % (0-5); Neutrophil # 2.77 X10^3/uL (2.7-7.7); Neutrophil % 51.7 % (47-70); Platelet Count 229 K/mm3 (150-450); RBC Distribution Width CV 14.2 % (11.6-14.6); RBC Distribution Width SD 51.3 fl (35.1-43.9); Red Blood Count 4.45 M/mm3 (4.6-6.2); White Blood Count 5.4 K/mm3 (4.4-11.0)
[2020-03-30 08:32] LABS: ALB/GLOB Ratio 1.1 RATIO (0.9-2.4); AST(SGOT) 15 U/L (15-37); Alanine Aminotransfer ALT/SGPT 28 U/L (16-61); Albumin, Serum 3.8 g/dL (3.2-5.0); Alkaline Phosphatase 57 U/L (45-117); Anion Gap 5 (5-15); BUN 25 mg/dL (7-18); BUN/Creat Ratio 26.2 RATIO (10-20); Calcium,Total 9.3 mg/dL (8.5-10.1); Chloride 107 mmol/L (98-107); Cholesterol 215 mg/dL (200); Creatinine, Serum 0.95 mg/dL (0.70-1.30); EST Glomerular Filtration Rate 82 mL/min (>60); Est Glom Filt Rate - Afr Amer 99 mL/min (>60); Globulin 3.6 g/dL (2.2-4.2); Glucose 90 mg/dL (74-106); High Density Lipoprotein 99 mg/dL; PSA,Total - Annual Screen 0.72 ng/mL (0.00-4.00); Potassium 4.4 mmol/L (3.5-5.1); Protein, Total 7.4 g/dL (6.4-8.2); Sodium Level 141 mmol/L (136-145); Triglycerides 55 mg/dL; Uric Acid 5.9 mg/dL (3.5-7.2); Very Low Density Lipoprotein 11 mg/dL (5-40)
== END ==
PROVIDERS: Family Provider Family Medicine; PCP Family Medicine; Referring Provider Family Medicine; Visit Provider Family Medicine
DX: I10 Essential (primary) hypertension (principal); M10.9 Gout, unspecified; Z12.5 Encounter for screening for malignant neoplasm of prostate; Z51.81 Encounter for therapeutic drug level monitoring
CPT/HCPCS: 36415; 80053; 80061; 84153; 84550; 85025; G0103

== ENCOUNTER → 2020-05-17 07:17 | Outpatient (CLI) | payer MEDICARE, BC, SELFPAY ==
[2019-10-01 08:57] VITALS: BMI 33.9
--- NOTE | 2020-05-17 09:03 | NEURO_ITS ---
NCS and/or EMG Patient Report Ordering Doctor: Robbie Andrews DATE OF SERVICE: 05/17/20 Indication: Left knee instability over the last 8 months. He denies any associated pain or sensory disturbances. Findings: Nerve conduction studies were performed in the left lower extremity. The left peroneal motor study recording the extensor digitorum brevis showed a normal amplitude, normal distal latency and normal conduction velocity. No conduction block or focal slowing was present across the fibular neck. The left tibial motor study recording the abductor hallucis brevis showed a normal amplitude, normal distal latency and normal conduction velocity. Left sural sensory response showed a normal amplitude and conduction velocity. Left superficial peroneal sensory response showed a normal amplitude and conduction velocity. Needle EMG of the left lower extremity and lumbar paraspinal muscles was performed. No denervation was present in any muscle. Activation was slightly reduced in the medial gastrocnemius muscle All motor unit morphology, activation and recruitment patterns were normal. Examined muscles included the tibialis anterior, medial gastrocnemius, vastus medialis, vastus lateralis, middle lumbar paraspinals. Impression: This is a normal study. There is no electrophysiologic evidence of lumbosacral radiculopathy, plexopathy, or peripheral neuropathy in the left lower extremity. Please note: the electrodiagnosis of radiculopathy is made on the basis of excluding peripheral nerve lesions on nerve conduction studies and the needle EMG demonstrating denervation and/or reinnervation in the distribution of one or more nerve roots (i.e., acute and/or chronic axonal loss). Thus, electrodiagno stic studies are insensitive in detecting radiculopathy in the absence of axonal loss (e.g., in the setting of compression resulting in intermittent ischemia or mechanical deformation; or demyelination without axonal loss). Thus, clinical correlation is required in the interpretation of this negative electrodiagnostic study for radiculopathy.
== END ==
PROVIDERS: PCP Family Medicine; Referring Provider Specialist; Visit Provider Specialist
DX: M62.562 Muscle wasting and atrophy, not elsewhere classified, left lower leg (principal)
CPT/HCPCS: 95886; 95908

== ENCOUNTER → 2020-05-24 10:14 | Outpatient (CLI) | payer MEDICARE, BC, SELFPAY ==
[2019-10-01 08:57] VITALS: BMI 33.9
[2020-05-24 10:37] LABS: Absolute Neutrophil Count 3.6 X10^3/uL (2.0-7.7); Basophil# 0.03 X10^3/uL; Basophil% 0.5 % (0-1); Eosinophil# 0.13 X10^3/uL; Eosinophils% 2.1 % (0-5); Hematocrit 40.6 % (40-54); Hemoglobin 13.8 g/dL (13.0-16.5); Lymphocyte % 29.5 % (19-41); Mean Corpuscular Hgb 34.2 pg (27.0-32.0); Mean Corpuscular Volume 100.7 fL (80-94); Mean Platelet Vol. 10.4 fl (6.2-12.0); Monocyte# 0.54 X10^3/uL; Monocyte% 8.9 % (0-10); NRBC Flagged by Analyzer 0 % (0-5); Neutrophil # 3.58 X10^3/uL (2.7-7.7); Neutrophil % 58.7 % (47-70); Platelet Count 188 K/mm3 (150-450); RBC Distribution Width CV 14.4 % (11.6-14.6); RBC Distribution Width SD 52.2 fl (35.1-43.9); Red Blood Count 4.03 M/mm3 (4.6-6.2); White Blood Count 6.1 K/mm3 (4.4-11.0)
[2020-05-24 10:51] LABS: Erythrocyte Sedimentation Rate 12 mm/hr (0-20)
[2020-05-24 11:25] LABS: CRP < 2.90 mg/L (0.0-3.0)
== END ==
PROVIDERS: PCP Family Medicine; Referring Provider Specialist; Visit Provider Specialist
DX: Z96.652 Presence of left artificial knee joint (principal)
CPT/HCPCS: 36415; 85025; 85652; 86140

== ENCOUNTER 2020-07-14 08:56 | Inpatient (IN) | payer MEDICARE, BC, SELFPAY ==
[2019-10-01 08:57] VITALS: BMI 33.9
[2020-06-21 12:04] LABS: Absolute Lymphocyte Count 1.75 X10^3/uL (0.83-4.51); Absolute Neutrophil Count 3.5 X10^3/uL (2.0-7.7); Basophil# 0.03 X10^3/uL; Basophil% 0.5 % (0-1); Eosinophil# 0.17 X10^3/uL; Eosinophils% 2.8 % (0-5); Hematocrit 42.4 % (40-54); Hemoglobin 13.7 g/dL (13.0-16.5); Lymphocyte # 1.75 X10^3/ul (4.0); Lymphocyte % 29.1 % (19-41); Mean Corp Hgb Conc 32.3 g/dL (32-36); Mean Corpuscular Hgb 31.5 pg (27.0-32.0); Mean Corpuscular Volume 97.5 fL (80-94); Mean Platelet Vol. 10.4 fl (6.2-12.0); Monocyte# 0.52 X10^3/uL; Monocyte% 8.7 % (0-10); NRBC Flagged by Analyzer 0 % (0-5); Neutrophil # 3.53 X10^3/uL (2.7-7.7); Neutrophil % 58.7 % (47-70); Platelet Count 259 K/mm3 (150-450); RBC Distribution Width CV 13.4 % (11.6-14.6); Red Blood Count 4.35 M/mm3 (4.6-6.2)
[2020-06-21 12:34] LABS: Anion Gap 6 (5-15); BUN 21 mg/dL (7-18); BUN/Creat Ratio 21.7 RATIO (10-20); Calcium,Total 9.2 mg/dL (8.5-10.1); Chloride 103 mmol/L (98-107); Creatinine, Serum 0.97 mg/dL (0.70-1.30); EST Glomerular Filtration Rate 80 mL/min (>60); Est Glom Filt Rate - Afr Amer 97 mL/min (>60); Glucose 91 mg/dL (74-106); Potassium 4.2 mmol/L (3.5-5.1); Sodium Level 139 mmol/L (136-145)
--- NOTE | 2020-06-22 06:21 | HP.PCM_ITS ---
History and Physical History and Physical [facility] Patient Name: Butch Galvez : 1945 From: GOOD RODRÍGUEZ PA-C DATE OF SURGERY: 07/14/2020 SCHEDULED PROCEDURE: revision left total knee arthroplasty HISTORY OF PRESENT ILLNESS: Preoperative history and physical exam was performed on June 21, 2020. This is a 75-year-old male who underwent an initial left robotic total knee arthroplasty on October 01, 2019. Patient complained of pain postoperatively over the anterior aspect of the knee. Following x-rays at 6 months noticed a change with lucency under the anterior flange of the femoral component. He participated in formal physical therapy. There has been some weakness and atrophy on the left side when compared to the right. EMG nerve conduction study exam was performed and was normal. Infectious lab workup was within normal limits and negative for an infection. He denies any fevers, chills or recent infections. Denies chest pain, shortness of breath. Patient continues to be frustrated with the pain with activities. After discussion with Dr. Robbie Andrews, the patient does wish to proceed with a revision left total knee a rthroplasty with the femoral component. Patient has medical history pertinent for hypertension and history of gout. REVIEW OF SYSTEMS: ROS: Const: Denies anorexia, anxiety, change in appetite, fever and weight change,and vision problems. CV: Denies chest pain, heart murmur, irregular heartbeat and peripheral vascular disease. Resp: Denies asthma, cough, pneumonia, sleep apnea, shortness of breath, tuberculosis and wheezing. GI: Denies constipation, diarrhea, heartburn, nausea, bloody stools and vomiting, and difficulty swallowing. : Denies incontinence. Musculo: Denies weakness and limp. Reports leg swelling, trouble walking. Skin: Denies Raynaud's, history of shingles and tattoo. Neuro: Denies ambulatory dysfunction, dizziness, numbness/tingling and tremor. Psych: Denies anxiety, depression, insomnia, mental illness and stress. Mata/Lymph: Denies anemia, bleeding/bruising tendency and past transfusion. Reviewed, no changes. PAST MEDICAL HISTORY: Advance Care Plan: Other Directive, LIVING WILL Effective Date: 06/04/2020 Other Directive, POA Effective Date: 06/04/2020 PMH: Medical Problems: Gout - occasional High Blood Pressure Accidents: Fracture - (2005) LT ANKLE Surgical Hx: Knee Replacement LT - (10/01/2019) SAW @ [facility] Anesthesia Complications: None Assistive Devices: Hearing Aid Reviewed, no changes. SOCIAL HISTORY: SH: Marital: .Occupation: Retired.Work Status: Retired.Hand Dominance: Left- handed. Personal Habits: Cigarette Use: Former.Smokeless Tobacco: Never Used Smokeless Tobacco.E-Cigarette Use: Never used.Alcohol: Occasionally.Drug Use: Denies Use.Enjoy Exercising: Exercises 1-3 X/Week. Reviewed and updated. VITALS: Ht: 66 Wt: 205lb Wt k.988 BMI: 33.1 BP: 138/88 Pulse: 72 Resp: 16 T: 96.6 T: 35.9C ALLERGIES: No Known Drug Allergy MEDICATIONS: Metoprolol Succinate ER 25 mg 1 by mouth every day, Lisinopril 5 mg 1 by mouth every day, Allopurinol 100 mg 1 by mouth every day, Vitamin D3 1000 Unit 1x/day by mouth, Tylenol Extra Strength 500 mg 2 by mouth every 8 hours PRE-OP EXAM: General appearance:NORMAL Other: Eyes: Conjunctivae and lids: NORMAL Pupils: ERR Ears, Nose, Mouth, and Throat: NORMAL Other: Inspection of lips, teeth and gums: NORMAL Other: Neck: Examination of neck: no masses noted. Respiratory: Assessment of respiratory effort: NORMAL Other: Auscultation of lungs: clear to auscultation no wheezes, rhonchi or rales. Cardiovascular: Auscultation of heart: regular rate and rhythm, no murmurs, gallops or rubs. Exam of carotid arteries: NORMAL Other: Gastrointestinal: Exam of abdomen: soft, nontender, nondistended bowel sounds present. PHYSICAL EXAMINATION: On exam patient does walk with an antalgic gait. He complains of pain over the anterior aspect of the knee. Previous incision is well-healed without any signs of infection or erythema. Range of motion: Lacks 5 of full extension to 115 flexion with pain. Atrophy appreciated in the left lower extremity when compared to the right. Sensation intact to light touch. IMAGING STUDIES: Previous x-rays of the left knee reveals well fixed tibia implant on the AP and lateral view. The femoral component shows a lucency behind the anterior flange which has been progressive from previous x-rays. There is good bony contact distally and posteriorly. There is increased cortication of the anterior bone behind the femoral anterior flange. Nerve conduction study exam of the left lower extremity shows no neurologic damage Infectious lab workup: ESR 12 and CRP less than 2.9 IMPRESSION: 1. Painful left total knee arthroplasty with loosening of the femoral component 2. Hypertension 3. History of gout PLAN: Dr. Robbie Andrews did discuss and review with the patient all treatment options including surgical versus nonsurgical options. Patient does wish to proceed with the above-stated procedure. Potential risks, benefits, and complications of the procedure were discussed in detail including but not limited to , infection, nerve and blood vessel damage, persistent pain, numbness, tingling, paresthesias, blood clot, pulmonary embolism, and requirement for possible further surgery. The patient expressed full understanding and has no further questions for the doctor. Patient does agree to proceed with the above-stated procedure and has signed the surgery consent form. We discussed the current risks associated with COVID 19. This does include the risk of exposure while in the hospital. Patient was reassured local hospitals have low infection rates and are taking all necessary precautions to avoid exposure to patients. In addition, we discussed strategies that can be used to help limit exposure including those that limit the patient's time in the hospital. Also using strategies to limit the patient's need for continued inpatient services after being discharged from the hospital. Patient was notified that we will need to comply with any screening or testing the hospital wishes to perform or that surgery may be delayed for any positive results. This dictation was created using voice recognition software. Phonetic and/or grammatical errors may exist. ___ I have re-examined the patient. There are no clinical changes since date of exam. ___ See progress notes for changes. ___ Dictated on admission Date: Time: Signature:
[2020-07-14] VITALS (12 sets, daily range): BP systolic 121–153; BP diastolic 67–92; PULSE 65–85; RESP 16–18; TEMP 36.6–37.3; O2SAT 95–100; BMI 32.8
[2020-07-14] MEDS: Gabapentin 600 MG Tablet PO (10:20)
[2020-07-14] MEDS: Celecoxib 200 MG Capsule 400 MG PO (10:21)
[2020-07-14] MEDS: Acetaminophen 500 MG Tablet 1000 MG PO ×2 (10:21→17:58)
[2020-07-14 10:25] LABS: Bedside Glucose 79 mg/dL (70-110)
[2020-07-14] MEDS: Lactated Ringers 1,000 ML 999 ML IV (11:20)
[2020-07-14] MEDS: Lactated Ringers 1,000 ML 75 ML IV (11:20)
[2020-07-14] MEDS: Cefazolin 2 GM in 0.9% Normal Saline 100 ML IV (11:41)
--- NOTE | 2020-07-14 11:45 | SOF_PTH ---
PATIENT: SUJIT MCLEAN LOC: [id number] U#:[id number] AGE/SX: 75/M ROOM: [facility] RE07/15/[address]: Dr. Jay Smith DO : 1945 BED: 1 DIS: 07/15/2020 SPEC #: [id number] RECD: 07/14/20 14:28 STATUS: CANDIDA RERobin #: [id number] ROMA: 07/14/20 11:[address]: Robbie Andrews DEPT: SURGICAL PATHOLOGY RECD BY: iNna Khalil ENTERED: 07/15/20 12:45 SP TYPE: SOFT TISS OTHR DR: DO Dr. Igor Servin DO Dr. Nicholas F Kotsonis, MD Dr. Steven Widmer, MD Tissues: A - Soft tissues, NOS B - Soft tissues, NOS C - Soft tissues, NOS Procedures: Surgery Specimen Level III Comments: @ Ordering doctor for SUIV edited from to @ by STEPHANE at 07/15/20 1407 @ Submitting doctor edited from to @ by RGOOD at 07/15/20 1407 HEADER OPERATION: ERAS, total knee replacement, revision PRE-OP DIAGNOSIS: Painful left total knee arthroplasty with loosening of femoral component TISSUE SUBMITTED: A - Suprapatellar pouch, B - Femoral membrane, C - Tibial membrane MICROSCOPIC DIAGNOSIS A. Suprapatellar pouch: A piece of fibroconnective and fibroadipose tissue with reactive changes. Negative for acute inflammation. B. Femoral membrane: Fragments of fibroconnective and fibroadipose tissue with focal chronic inflammation, fat necrosis, reactive changes and fibrinous exudation. Negative for acute inflammation. A minute fragment of bone is also noted. C. Tibial membrane: A piece of fibroconnective tissue with necrosis, extensive fibrinous exudation and calcification. Negative for acute inflammation. SJ:terrance 07/16/2020 MICROSCOPIC DESCRIPTION Slides are reviewed. GROSS DESCRIPTION A - Received in fixative is one container labeled with the patient's name and designated suprapatellar pouch. The specimen consists of a piece of torres, indurated tissue measuring 2.5 x 1.2 x 0.6 cm. The specimen is bisected and submitted entirely in one cassette. B - Received in fixative is one container labeled with the patient's name and designated femoral membrane. The specimen consists of multiple pieces of torres, indurated tissue that in aggregate measure 4 x 3 x 1 cm. The largest piece measures 3.5 cm in greatest length. No mass lesion is identified. Workers' [employer] Mediator sections are submitted in two cassettes. C - Received in fixative is one container labeled with the patient's name and designated tibial membrane. The specimen consists of a piece of torres-white soft tissue measuring 0.7 x 0.5 x 0.1 cm. The entire specimen is submitted in one cassette. / CAROLIN:terrance 07/15/20 TC:3 CPT: 63556 x3
--- NOTE | 2020-07-14 13:29 | OP.PCM_ITS ---
Report of Operation Date of Procedure: 07/14/20 Pre-Operative Diagnosis: Painful left total knee, aseptic loosening left femur Post-Operative Diagnosis: Painful left total knee, aseptic loosening left femur Surgery/Procedure Performed:: Revision left femoral component total knee Description of Surgical Findings:: Gross loosening of the left femur. The cemented femur had been implanted as press-fit. construction flagger: Bernard Ingram Type of Anesthesia:: Spinal Anesthesiologist: Bony Mittal Special Medications: 2 g Ancef, 1 g TXA at incision, 1 g TXA closure, 10 mg Decadron, joint cocktail (5 mg Duramorph, 30 mL of 0.5% Ropivicaine, 1000 units of epinephrine, 30 mg of Toradol) Estimated Blood Loss (mL): 50 Fluids Replaced: 1500 mL crystalloid Grafts/Implants Used: Melanie triathlon TS size 4 femur - Complications No intraoperative complications - Admit VTE Documentation VTE Present on Admission: No VTE Mechan Device Prophylaxis: SCD's, Thigh High TANIA Hose VTE Pharm Prophylaxis ordered?: Yes
[2020-07-14] MEDS: Lactated Ringers 1,000 ML 125 ML IV ×2 (14:44→17:59)
--- NOTE | 2020-07-14 17:17 | PCM.PROGNOTE ---
<Kate Eaton CLINICAL DERMATOLOGIST - Last Filed: 07/14/20 17:21> Subjective: Patient seen and examined. Underwent left total knee replacement by Dr. Andrews. Resting comfortably in bed. Denies pain currently. Denies other symptoms or complaints. - Physical Exam Vitals/I&O's: Vital Signs Temp Pulse Resp BP Pulse Ox 98.6 F 67 18 133/80 H 100 07/14/20 14:50 07/14/20 14:50 07/14/20 14:50 07/14/20 14:50 07/14/20 14:50 Oxygen Flow Rate (L/min) 6 Oxygen Delivery Method Simple Mask Weight: 209 lb 10.554 oz Body Mass Index (BMI) 32.8 Intake and Output for Last 24 Hours 07/12/20 07/13/20 07/14/20 23:59 23:59 23:59 Intake Total 3435.5 / 3435.5 Balance 3435.5 / 3435.5 General: Alert, Oriented x3, Cooperative HEENT: Atraumatic, PERRLA, EOMI, Normocephalic Neck: Supple, No JVD, Negative Carotid Bruits Lungs: Clear to auscultation, Normal air movement Cardiovascular: Regular rate, No murmurs Abdomen: Bowel Sounds Present, Soft, Non Tender, Non-Distended Extremities: No clubbing, No cyanosis, No edema, Capillary Refill Less than 3 Seconds Skin: No rashes, No breakdown, - - Left knee postop dressing intact Musculoskeletal: No Tenderness to Palpation of Joints or Extremities Neurological: Cranial nerves II-XII grossly intact, Neuro grossly intact Psych/Mental Status: Normal Affect, Appropriate Microbiology Past 72 Hours 07/13/20 08:18 Interface Orders SARS-CoV-2 Antigen (Rapid) - Final Laboratory Results 07/14/20 09:56: POC Glucose 79 Current Medications Acetaminophen (Acetaminophen 500 Mg Tablet) 1,000 mg PO Q8 KRZYSZTOF Allopurinol (Allopurinol 100 Mg Tablet) 100 mg PO DAILYCM [facility] Aspirin (Aspirin 81 Mg Tab.Chew) 81 mg PO BID KRZYSZTOF Cholecalciferol (Cholecalciferol (Vit D3) 1,000 Unit (25mcg)) 1,000 unit PO DAILY [facility]ZTOF Doxycycline Monohydrate (Doxycycline 100 Mg Capsule) 100 mg PO BID [facility] Enteral Nutritional Formula (Ensure Surgery 237 Ml Liquid) 237 ml PO TIDCM [facility] Famotidine (Famotidine 20 Mg Tablet) 20 mg PO DAILY [facility] Lactated Ringer's () 1,000 mls @ 125 mls/hr IV .Q8H [facility] Cefazolin Sodium () 1 gm in 50 mls @ 150 mls/hr IV Q8 [facility] Stop: 07/15/20 06:19 Insulin Human Lispro (Insulin Lispro 100 Unit/Ml Insuln.Pen) 1 - 6 unit SC Q4H PRN PRN; Protocol PRN Reason: BG>/= 180, SEE PROTOCOL Ketorolac Tromethamine (Ketorolac 15 Mg/Ml Vial) 15 mg IV Q6H PRN PRN PRN Reason: Pain Score 1-5 Stop: 07/16/20 15:26 Lisinopril (Lisinopril 5 Mg Tablet) 5 mg PO DAILY [facility] Meloxicam (Meloxicam 7.5 Mg Tablet) 7.5 mg PO BID [facility] Metoprolol Tartrate (Metoprolol Tartrate 25 Mg Tablet) 25 mg PO DAILY [facility] Morphine Sulfate (Morphine 2 Mg/Ml Syringe) 2 - 4 mg IV Q2H PRN PRN PRN Reason: Pain Score 6-10 Ondansetron HCl (Ondansetron 4 Mg/2 Ml Vial) 4 mg IV Q8H PRN PRN PRN Reason: NAUSEA Oxycodone HCl (Oxycodone 5 Mg Tablet) 5 - 10 mg PO Q4H PRN PRN PRN Reason: Pain Score 4-10 Promethazine HCl (Promethazine 25 Mg/Ml Syringe) 12.5 mg IM Q6H PRN PRN; Protocol PRN Reason: NAUSEA/VOMITING Scopolamine HBr (Scopolamine 1mg/72hr Patch) 1 patch TD Q3D [facility] Stop: 07/14/20 15:31 Senna/Docusate Sodium (Senna/Docusate Sodium 1 Tablet) 2 tablet PO BID [facility] Sodium Chloride (0.9% Saline Lock 10 Ml Syringe) 10 - 40 ml IV UD PRN PRN Reason: SALINE FLUSH Medical Necessity - Tobacco Use Smoking Status: Former smoker Tobacco Use: Non-smoker Assessment/Plan 1. Hypertension-stable, continue lisinopril, metoprolol. 2. Gout-on allopurinol 3. Status post revision left total knee 07/14/[address] Juliana-management per Ortho. PT/OT. DVT prophylaxis-Aspirin 81mg BID per ortho This patient was seen by JEAN Almazan under the supervision of Dr. Aparicio. <Rudy Aparicio F - Last Filed: 07/14/20 18:40> - Physical Exam Vitals/I&O's: Vital Signs Temp Pulse Resp BP Pulse Ox 98.6 F 75 18 153/86 H 98 07/14/20 17:15 07/14/20 17:15 07/14/20 17:15 07/14/20 17:15 07/14/20 17:15 Oxygen Flow Rate (L/min) 6 Oxygen Delivery Method Room Air Weight: 209 lb 10.554 oz Body Mass Index (BMI) 32.8 Intake and Output for Last 24 Hours 07/12/20 07/13/20 07/14/20 23:59 23:59 23:59 Intake Total 3435.5 / 3435.5 Balance 3435.5 / 3435.5 Microbiology Past 72 Hours 07/13/20 08:18 Interface Orders SARS-CoV-2 Antigen (Rapid) - Final Laboratory Results 07/14/20 09:56: POC Glucose 79 Current Medications Acetaminophen (Acetaminophen 500 Mg Tablet) 1,000 mg PO Q8H [facility] Last Admin: 07/14/20 17:58 Dose: 1,000 mg Documented by: Allopurinol (Allopurinol 100 Mg Tablet) 100 mg PO DAILYCM [facility] Aspirin (Aspirin 81 Mg Tab.Chew) 81 mg PO BIDCM [facility] Cholecalciferol (Cholecalciferol (Vit D3) 1,000 Unit (25mcg)) 1,000 unit PO DAILY [facility] Doxycycline Monohydrate (Doxycycline 100 Mg Capsule) 100 mg PO BID [facility] Enteral Nutritional Formula (Ensure Surgery 237 Ml Liquid) 237 ml PO TIDCM [facility] Last Admin: 07/14/20 17:57 Dose: 237 ml Documented by: Famotidine (Famotidine 20 Mg Tablet) 20 mg PO DAILY [facility] Lactated Ringer's () 1,000 mls @ 125 mls/hr IV .Q8H [facility] Last Admin: 07/14/20 17:59 Dose: 125 mls/hr Documented by: Cefazolin Sodium () 1 gm in 50 mls @ 150 mls/hr IV Q8H [facility] Stop: 07/15/20 03:49 Insulin Human Lispro (Insulin Lispro 100 Unit/Ml Insuln.Pen) 1 - 6 unit SC Q4H PRN PRN; Protocol PRN Reason: BG>/= 180, SEE PROTOCOL Ketorolac Tromethamine (Ketorolac 15 Mg/Ml Vial) 15 mg IV Q6H PRN PRN PRN Reason: Pain Score 1-5 Lisinopril (Lisinopril 5 Mg Tablet) 5 mg PO DAILY [facility] Meloxicam (Meloxicam 7.5 Mg Tablet) 7.5 mg PO BID [facility] Metoprolol Tartrate (Metoprolol Tartrate 25 Mg Tablet) 25 mg PO DAILY [facility] Morphine Sulfate (Morphine 2 Mg/Ml Syringe) 2 - 4 mg IV Q2H PRN PRN PRN Reason: Pain Score 6-10 Morphine Sulfate (Morphine 4 Mg/Ml Syringe) 2 - 4 mg IV Q2H PRN PRN PRN Reason: Pain Score 6-10 Ondansetron HCl (Ondansetron 4 Mg/2 Ml Vial) 4 mg IV Q8H PRN PRN PRN Reason: NAUSEA Oxycodone HCl (Oxycodone 5 Mg Tablet) 5 - 10 mg PO Q4H PRN PRN PRN Reason: Pain Score 4-10 Promethazine HCl (Promethazine 25 Mg/Ml Syringe) 12.5 mg IM Q6H PRN PRN; Protocol PRN Reason: NAUSEA/VOMITING Senna/Docusate Sodium (Senna/Docusate Sodium 1 Tablet) 2 tablet PO BID [facility] Sodium Chloride (0.9% Saline Lock 10 Ml Syringe) 10 - 40 ml IV UD PRN PRN Reason: SALINE FLUSH Addendum: Dr. Aparicio I personally examined the patient and reviewed the chart. I agree with the above. 75-year-old male presents for an elective left total knee replacement. He states that he initially had 1 however the wrong hardware was put in and so new hardware had to be put in and cemented in place. He is doing well denies any significant pain. Is able to move his toes and has sensation in both lower extremities. Has a history of hypertension, would continue his lisinopril and his metoprolol. We will follow up with his creatinine in the morning secondary to his JUANY inhibitor. Continue with IV fluids. OBSV E&M: 38590 Subsequent observation care L3
--- NOTE | 2020-07-14 17:45 | RAD_ITS ---
STUDY: X-RAY - LEFT KNEE REASON FOR EXAM: Male, 75 years old. POST OP LEFT KNEE TECHNIQUE: 2 view(s) of the knee. COMPARISON: OCTOBER 01, 2019 FINDINGS: Status post hardware revision with new distal femur prosthetic component which has a longer stem and new cemented around the stent in the distal one third femoral shaft. The new distal femur hardware demonstrates good bony contact and alignment. Expected postoperative changes in the overlying soft tissues and joint. Skin shelley are present. Stable appearance to the prosthetic components of the patella and proximal tibia. Atherosclerotic calcifications are present. RAD/Knee 1 or 2 Views IMPRESSION: Status post hardware revision Electronically Signed: Charlie Saleem MD at 18:37 EST , Service support ,
[2020-07-14] MEDS: Ensure Surgery 237 ML LIQUID PO (17:57)
[2020-07-14] MEDS: Scopolamine 1mg/72hr Patch 1 PATCH TD (17:58)
[2020-07-14] MEDS: Cefazolin 1 GM/50 ML BAG IV (20:08)
[2020-07-14] MEDS: Lisinopril 5 MG Tablet PO (21:35)
[2020-07-14] MEDS: Doxycycline 100 MG CAPSULE PO (21:36)
[2020-07-14] MEDS: Senna/Docusate Sodium 1 Tablet 2 TABLET PO (21:36)
[2020-07-15] MEDS: Lactated Ringers 1,000 ML 125 ML IV (00:49)
[2020-07-15] MEDS: Cefazolin 1 GM/50 ML BAG IV (03:26)
[2020-07-15] MEDS: Acetaminophen 500 MG Tablet 1000 MG PO ×2 (03:27→09:56)
[2020-07-15 03:44] VITALS: BP 138/78; PULSE 62; RESP 20; TEMP 36.6; O2SAT 98
--- NOTE | 2020-07-15 06:22 | PCM.PN.ORT ---
Subjective: Patient is doing well this morning. No acute events overnight. He reports increased comfort. No chest pain or shortness of breath. Notes he has been up with therapy/nursing staff. Able to flex and extend his knee well. No calf pain. - Physical Exam Vitals/I&O's: Vital Signs Temp Pulse Resp BP Pulse Ox 97.9 F 62 20 H 138/78 H 98 07/15/20 03:44 07/15/20 03:44 07/15/20 03:44 07/15/20 03:44 07/15/20 03:44 Oxygen Flow Rate (L/min) 6 Oxygen Delivery Method Room Air Weight: 209 lb 10.554 oz Body Mass Index (BMI) 32.8 Intake and Output for Last 24 Hours 07/13/20 07/14/20 07/15/20 23:59 23:59 23:59 Intake Total 3754.25 / 4154.25 Balance 3754.25 / 4154.25 General: Alert, Oriented x3, Cooperative Extremities: - - Left lower extremity: Dressing is clean dry and intact Sensations intact to light touch saphenous, sural, superficial peroneal, deep peroneal, and tibial distributions Motors intact EHL, DF, PF calves are soft and supple Microbiology Past 72 Hours 07/13/20 08:18 Interface Orders SARS-CoV-2 Antigen (Rapid) - Final Laboratory Results 07/14/20 09:56: POC Glucose 79 Current Medications Acetaminophen (Acetaminophen 500 Mg Tablet) 1,000 mg PO Q8H [facility] Last Admin: 07/15/20 03:27 Dose: 1,000 mg Documented by: Allopurinol ([facility] 100 Mg Tablet) [facility] Aspirin (Aspirin 81 Mg Tab.Chew) [facility] Cholecalciferol (Cholecalciferol (Vit D3) 1,000 Unit (25mcg)) 1,000 unit PO DAILY [facility] Doxycycline Monohydrate (Doxycycline 100 Mg Capsule) 100 mg PO BID [facility] Last Admin: 07/14/20 21:36 Dose: 100 mg Documented by: Enteral Nutritional Formula (Ensure Surgery 237 Ml Liquid) 237 ml PO TIDCM [facility] Last Admin: 07/14/20 17:57 Dose: 237 ml Documented by: Famotidine (Famotidine 20 Mg Tablet) 20 mg PO DAILY [facility] Insulin Human Lispro (Insulin Lispro 100 Unit/Ml Insuln.Pen) 1 - 6 unit SC Q4H PRN PRN; Protocol PRN Reason: BG>/= 180, SEE PROTOCOL Ketorolac Tromethamine (Ketorolac 15 Mg/Ml Vial) 15 mg IV Q6H PRN PRN PRN Reason: Pain Score 1-5 Lisinopril (Lisinopril 5 Mg Tablet) 5 mg PO DAILY [facility] Last Admin: 07/14/20 21:35 Dose: 5 mg Documented by: Meloxicam (Meloxicam 7.5 Mg Tablet) 7.5 mg PO BID [facility] Metoprolol Tartrate (Metoprolol Tartrate 25 Mg Tablet) 25 mg PO DAILY [facility] Morphine Sulfate (Morphine 2 Mg/Ml Syringe) 2 - 4 mg IV Q2H PRN PRN PRN Reason: Pain Score 6-10 Morphine Sulfate (Morphine 4 Mg/Ml Syringe) 2 - 4 mg IV Q2H PRN PRN PRN Reason: Pain Score 6-10 Ondansetron HCl (Ondansetron 4 Mg/2 Ml Vial) 4 mg IV Q8H PRN PRN PRN Reason: NAUSEA Oxycodone HCl (Oxycodone 5 Mg Tablet) 5 - 10 mg PO Q4H PRN PRN PRN Reason: Pain Score 4-10 Promethazine HCl (Promethazine 25 Mg/Ml Syringe) 12.5 mg IM Q6H PRN PRN; Protocol PRN Reason: NAUSEA/VOMITING Senna/Docusate Sodium (Senna/Docusate Sodium 1 Tablet) 2 tablet PO BID [facility] Last Admin: 07/14/20 21:36 Dose: 2 tablet Documented by: Sodium Chloride (0.9% Saline Lock 10 Ml Syringe) 10 - 40 ml IV UD PRN PRN Reason: SALINE FLUSH Medical Necessity - Tobacco Use Smoking Status: Former smoker Tobacco Use: Non-smoker Assessment/Plan Postop day 1 left knee femoral component revision. 1. DVT prophylaxis: Aspirin 81 mg twice daily 2. Pain control: Continue with current regimen pain currently controlled at this time. Tylenol, NSAIDs and oxycodone. 3. Physical therapy: Range of motion as tolerated. Activity as tolerated. Outpatient therapy should be arranged 4. Medical management: Patient currently stable labs are pending. Will follow labs and correct any changes necessary appreciate medicine input on this patient. 5. Disposition: Plan is for discharge home today. We will discontinue dressing on postop day 5. [place] will be removed at 2-week postop visit. Outpatient physical therapy been arranged first appointment is July 19 continue with home exercise program until then. [facility] Office:
--- NOTE | 2020-07-15 06:26 | PCM.DC.TKR ---
<Robbie Andrews - Last Filed: 07/15/20 06:32> Discharge Diet: No Restrictions Discharge Activity: May Not Drive May shower in (days): 2 - Keep dressing intact May resume sexual activity in: 4-6 weeks Ice area for (Minutes): 20 - every hour while awake. Weight Bearing Status: Weight bearing as tolerated Elevate: Operative Extremity Additional Activity Instructions:: Wear elastic stockings for 2 weeks after your surgery. Call your doctor if your incision/area has: Continuous Slow Oozing, Sudden Increased Bleeding, Increased Pain/ Swelling, Increased Redness, Foul Smelling Discharge Call your doctor if you observe: Fever of 101 or Higher, Coldness, Increased Pain, Numbness or Tingling, Change in Color, Calf discomfort, Uncontrolled pain Remove Dressing in (days):: 07-19-2020 Cleanse incision/area with: Keep Dressing Clean & Dry Additional Dressing/Incision Instructions:: If incision is clean dry and intact may leave the wound open to air and continue showering. If there is continued drainage continue daily dry dressing changes and keep incision clean dry and intact until there is no drainage. Allergies/Adverse Reactions: Allergies No Known Allergies Allergy (Verified 07/14/20 09:59) Medications to take at Discharge Cholecalciferol (VIT D3) [Vitamin D3] 1,000 unit PO DAILY 08/11/19 Lisinopril [Prinivil] 5 mg PO DAILY 08/11/19 Metoprolol Tartrate 25 mg PO DAILY 08/11/19 Allopurinol [Zyloprim] 100 mg PO DAILYCM 06/29/20 Acetaminophen [Tylenol] 1,000 mg PO Q8H tab 07/15/20 Aspirin [Aspirin, Baby] 81 mg PO BIDCM tab.chew 07/15/20 Doxycycline 100 mg PO BID #14 cap 07/15/20 Ensure Surgery 237 ml PO TIDCM liquid 07/15/20 Famotidine [Pepcid] 20 mg PO DAILY #30 tab 07/15/20 Meloxicam [Mobic] 7.5 mg PO BID #60 tab 07/15/20 Oxycodone [Oxyir] 5 - 10 mg PO Q4H PRN PRN 4 Days #42 tab 07/15/20 The following prescriptions were given: Doxycycline 100 mg PO BID #14 cap Prescription Printed Meloxicam [Mobic] 7.5 mg PO BID #60 tab Prescription Printed Oxycodone [Oxyir] 5 - 10 mg PO Q4H PRN PRN 4 Days #42 tab PRN Reason: Pain Score 4-10 Prescription Printed Famotidine [Pepcid] 20 mg PO DAILY #30 tab Prescription Printed Orders to be completed after discharge: Magnesium Time Frame: 06/29/20, Facility: [facility], Location: Laboratory Primary Care Physician: Igor Lantigua DO [Primary Care Provider] - Test Results: Test results from this visit will be discussed in further detail at your follow-up appointment, if applicable. Please Follow Up With: Bernard Ingram PA-C When: 07-28-2020 10:00 Proposed Discharge Date: 07/15/20 <Bernard Ingram - Last Filed: 07/15/20 09:57> Test Results: Test results from this visit will be discussed in further detail at your follow-up appointment, if applicable.
[2020-07-15] MEDS: Aspirin 81 MG TAB.CHEW PO (07:27)
[2020-07-15 07:28] VITALS: PULSE 62
[2020-07-15] MEDS: Doxycycline 100 MG CAPSULE PO (07:28)
[2020-07-15] MEDS: Allopurinol 100 MG Tablet PO (07:28)
[2020-07-15] MEDS: Metoprolol Tartrate 25 MG Tablet PO (07:28)
[2020-07-15] MEDS: Senna/Docusate Sodium 1 Tablet 2 TABLET PO (07:29)
[2020-07-15] MEDS: Famotidine 20 MG Tablet PO (07:29)
[2020-07-15] MEDS: Ensure Surgery 237 ML LIQUID PO ×2 (07:36→12:13)
[2020-07-15 07:38] VITALS: BP 131/73; PULSE 59; RESP 16; TEMP 36.7; O2SAT 97
[2020-07-15 09:34] LABS: Hematocrit 39.9 % (40-54); Hemoglobin 12.8 g/dL (13.0-16.5); Mean Corp Hgb Conc 32.1 g/dL (32-36); Mean Corpuscular Hgb 32.1 pg (27.0-32.0); Mean Platelet Vol. 10.4 fl (6.2-12.0); Platelet Count 210 K/mm3 (150-450); RBC Distribution Width CV 13.5 % (11.6-14.6); RBC Distribution Width SD 49.9 fl (35.1-43.9); Red Blood Count 3.99 M/mm3 (4.6-6.2); White Blood Count 11.1 K/mm3 (4.4-11.0)
[2020-07-15 09:49] LABS: Anion Gap 5 (5-15); BUN 20 mg/dL (7-18); BUN/Creat Ratio 18.9 RATIO (10-20); Calcium,Total 8.9 mg/dL (8.5-10.1); Chloride 107 mmol/L (98-107); Creatinine, Serum 1.06 mg/dL (0.70-1.30); EST Glomerular Filtration Rate 72 mL/min (>60); Est Glom Filt Rate - Afr Amer 87 mL/min (>60); Estimated Creatinine Clearance 55.43 ml/min; Glucose 87 mg/dL (74-106); Potassium 4.1 mmol/L (3.5-5.1); Sodium Level 142 mmol/L (136-145)
--- NOTE | 2020-07-15 10:40 | CASEMGMT ---
RACHEL GRAMAJO Face to Face with patient for initial transition planning/care coordination assessment. RN AVILA introduced self and role at [facility]. Patient sitting up in chair, alert and oriented. Patient willing to participate in assessment and is able to answer all questions appropriately. Care providers, pharmacy, and demographics verified. Patient wishes to discharge home, denies need for home health at this time. Patient states he has no further needs or concerns at this time. CM to follow for discharge planning needs that may arise. PCP: Grzegorz Specialists: jax Andrews [facility]: [facility] Insurance: Medicare, [place] Prescription Benefit: yes Living Will/HPOA: yes, yes Mayra SETVE: Living Arrangements: Patient lives with his in a bilevel home with 14 steps, rail on one side to enter main living area. Patient states he was independent at home. Transportation: DME/HHC: Patient states he has a high profile toilet, cane, walker, and grab bars in the home. Patient denies previous HHC. Disposition Plan: Patient is set up with [facility] for outpatient therapy with his first appointment on 07/19/20. Patient to discharge home with family support and follow up plans in place.
--- NOTE | 2020-07-15 12:23 | PHA.DC.MC ---
Pharmacy Service has performed discharge medication reconciliation and counseling for this patient. The patient was counseled on the following discharge medications and changes in medications for homegoing were reviewed. 1. TYLENOL 2. ASPIRIN 3. OXYCODONE 4. DOXYCYCLINE 5. PEPCID 6. MOBIC The Reason for Use, instructions for use, and potential side effects were reviewed for all new medications. The patient's questions regarding all of their medications were answered. The patient was able to verbally demonstrate an understanding of their discharge medications. Home Medications Cholecalciferol (VIT D3) [Vitamin D3] 1,000 unit PO DAILY 08/11/19 Lisinopril [Prinivil] 5 mg PO DAILY 08/11/19 Metoprolol Tartrate 25 mg PO DAILY 08/11/19 Allopurinol [Zyloprim] 100 mg PO DAILYCM 06/29/20 Acetaminophen [Tylenol] 1,000 mg PO Q8H tab 07/15/20 Aspirin [Aspirin, Baby] 81 mg PO BIDCM tab.chew 07/15/20 Doxycycline 100 mg PO BID #14 cap 07/15/20 Ensure Surgery 237 ml PO TIDCM liquid 07/15/20 Famotidine [Pepcid] 20 mg PO DAILY #30 tab 07/15/20 Meloxicam [Mobic] 7.5 mg PO BID #60 tab 07/15/20 Oxycodone [Oxyir] 5 - 10 mg PO Q4H PRN PRN 4 Days #42 tab 07/15/20 The patient's discharge medication list was reviewed for discrepancies and discrepancies were resolved.
== END 2020-07-15 13:19 | disposition home or self-care (01) | DRG 468 ==
LOC: ACINP 16:47 → MS3 16:47
PROVIDERS: Physician Assistant Surgical; Admitting Provider Specialist; PCP Family Medicine; Referring Provider Specialist
DX: T84.89XA Other specified complication of internal orthopedic prosthetic devices, implants and grafts, initial encounter (principal); T84.84XA Pain due to internal orthopedic prosthetic devices, implants and grafts, initial encounter; R26.89 Other abnormalities of gait and mobility; Z96.652 Presence of left artificial knee joint; Y83.1 Surgical operation with implant of artificial internal device as the cause of abnormal reaction of the patient, or of later complication, without mention of misadventure at the time of the procedure; I10 Essential (primary) hypertension; M10.9 Gout, unspecified; Z79.899 Other long term (current) drug therapy; Z87.891 Personal history of nicotine dependence; Z20.822 Contact with and (suspected) exposure to COVID-19
CPT/HCPCS: 36415; 73560; 80048; 82962; 85025; 85027; 87015; 87070; 87075; 87081; 87102; 87116; 87176; 87205; 87206; 87426; 88304; 88305; 97110; 97161; 97166; 97530; 97535; 99251; C1776; C9803; J7120; G0463

== ENCOUNTER → 2021-04-20 06:57 | Outpatient (CLI) | payer MEDICARE, BC, SELFPAY ==
[2020-07-14 10:02] VITALS: BMI 32.8
[2021-04-20 07:43] LABS: Absolute Lymphocyte Count 2.04 X10^3/uL (0.83-4.51); Absolute Neutrophil Count 2.9 X10^3/uL (2.0-7.7); Basophil# 0.05 X10^3/uL; Basophil% 0.9 % (0-1); Eosinophil# 0.17 X10^3/uL; Hematocrit 42.5 % (40-54); Hemoglobin 13.7 g/dL (13.0-16.5); Lymphocyte # 2.04 X10^3/ul (0.83-4.51); Lymphocyte % 35.8 % (19-41); Mean Corp Hgb Conc 32.2 g/dL (32-36); Mean Corpuscular Volume 96.2 fL (80-94); Mean Platelet Vol. 10.8 fl (6.2-12.0); Monocyte# 0.53 X10^3/uL; Monocyte% 9.3 % (0-10); NRBC Flagged by Analyzer 0 % (0-5); Neutrophil # 2.89 X10^3/uL (2.7-7.7); Neutrophil % 50.6 % (47-70); Platelet Count 233 K/mm3 (150-450); RBC Distribution Width CV 14.2 % (11.6-14.6); RBC Distribution Width SD 50.5 fl (35.1-43.9); Red Blood Count 4.42 M/mm3 (4.6-6.2); White Blood Count 5.7 K/mm3 (4.4-11.0)
[2021-04-20 08:10] LABS: ALB/GLOB Ratio 0.8 RATIO (0.9-2.4); AST(SGOT) 18 U/L (15-37); Alanine Aminotransfer ALT/SGPT 35 U/L (16-61); Albumin, Serum 3.4 g/dL (3.2-5.0); Alkaline Phosphatase 62 U/L (45-117); Anion Gap 6 (5-15); BUN 20 mg/dL (7-18); BUN/Creat Ratio 21.3 RATIO (10-20); Calcium,Total 9.2 mg/dL (8.5-10.1); Chloride 105 mmol/L (98-107); Cholesterol 207 mg/dL (200); Creatinine, Serum 0.94 mg/dL (0.70-1.30); EST Glomerular Filtration Rate 83 mL/min (>60); Est Glom Filt Rate - Afr Amer 100 mL/min (>60); Glucose 92 mg/dL (74-106); High Density Lipoprotein 78 mg/dL; PSA,Total - Annual Screen 0.57 ng/mL (0.00-4.00); Potassium 4.3 mmol/L (3.5-5.1); Protein, Total 7.4 g/dL (6.4-8.2); Sodium Level 139 mmol/L (136-145); Triglycerides 83 mg/dL; Uric Acid 6.1 mg/dL (3.5-7.2); Very Low Density Lipoprotein 17 mg/dL (5-40)
== END ==
PROVIDERS: PCP Family Medicine; Visit Provider Family Medicine
DX: I10 Essential (primary) hypertension (principal); M10.9 Gout, unspecified; Z12.5 Encounter for screening for malignant neoplasm of prostate
CPT/HCPCS: 36415; 80053; 80061; 84153; 84550; 85025; G0103

== ENCOUNTER → 2021-10-31 | Outpatient (CLI) | payer MEDICARE, BC, SELFPAY ==
[2021-10-31 08:22] LABS: ALB/GLOB Ratio 1.1 RATIO (0.9-2.4); AST(SGOT) 16 U/L (15-37); Alanine Aminotransfer ALT/SGPT 24 U/L (16-61); Albumin, Serum 3.5 g/dL (3.2-5.0); Alkaline Phosphatase 50 U/L (45-117); Anion Gap 5 (5-15); BUN 19 mg/dL (7-18); BUN/Creat Ratio 20.8 RATIO (10-20); Calcium,Total 8.9 mg/dL (8.5-10.1); Chloride 108 mmol/L (98-107); Cholesterol 195 mg/dL (200); Creatinine, Serum 0.92 mg/dL (0.70-1.30); EST Glomerular Filtration Rate 85 mL/min (>60); Est Glom Filt Rate - Afr Amer 103 mL/min (>60); Globulin 3.2 g/dL (2.2-4.2); Glucose 95 mg/dL (74-106); High Density Lipoprotein 73 mg/dL; Potassium 3.9 mmol/L (3.5-5.1); Protein, Total 6.7 g/dL (6.4-8.2); Sodium Level 140 mmol/L (136-145); Triglycerides 101 mg/dL; Very Low Density Lipoprotein 20 mg/dL (5-40)
== END | disposition home or self-care (01) ==
LOC: LAB 06:47
PROVIDERS: PCP Family Medicine; Referring Provider Family Medicine; Visit Provider Family Medicine
DX: I10 Essential (primary) hypertension (principal)
CPT/HCPCS: 36415; 80053; 80061

== ENCOUNTER → 2022-04-24 | Outpatient (CLI) | payer MEDICARE, BC, SELFPAY | END | disposition home or self-care (01) | LOC: BFHLAB 13:17 | PROVIDERS: PCP Family Medicine; Visit Provider Family Medicine | DX: I10 Essential (primary) hypertension (principal); M10.9 Gout, unspecified; Z12.5 Encounter for screening for malignant neoplasm of prostate ==

== ENCOUNTER → 2022-04-28 | Outpatient (CLI) | payer MEDICARE, BC, SELFPAY ==
[2022-04-28 07:14] LABS: Absolute Lymphocyte Count 2.31 X10^3/uL (0.83-4.51); Absolute Neutrophil Count 2.6 X10^3/uL (2.0-7.7); Basophil# 0.04 X10^3/uL; Basophil% 0.7 % (0-1); Eosinophil# 0.18 X10^3/uL; Eosinophils% 3.1 % (0-5); Hematocrit 43.4 % (40-54); Lymphocyte # 2.31 X10^3/ul (0.83-4.51); Lymphocyte % 40.2 % (19-41); Mean Corp Hgb Conc 32.3 g/dL (32-36); Mean Corpuscular Hgb 31.7 pg (27.0-32.0); Mean Corpuscular Volume 98.2 fL (80-94); Mean Platelet Vol. 10.3 fl (6.2-12.0); Monocyte% 10.4 % (0-10); NRBC Flagged by Analyzer 0 % (0-5); Neutrophil # 2.61 X10^3/uL (2.7-7.7); Neutrophil % 45.4 % (47-70); Platelet Count 214 K/mm3 (150-450); RBC Distribution Width CV 13.8 % (11.6-14.6); RBC Distribution Width SD 50.1 fl (35.1-43.9); Red Blood Count 4.42 M/mm3 (4.6-6.2); White Blood Count 5.8 K/mm3 (4.4-11.0)
[2022-04-28 07:43] LABS: AST(SGOT) 18 U/L (15-37); Alanine Aminotransfer ALT/SGPT 29 U/L (16-61); Albumin, Serum 3.7 g/dL (3.2-5.0); Alkaline Phosphatase 49 U/L (45-117); Anion Gap 4 (5-15); BUN 26 mg/dL (7-18); BUN/Creat Ratio 25.7 RATIO (10-20); Calcium,Total 9.3 mg/dL (8.5-10.1); Chloride 107 mmol/L (98-107); Cholesterol 232 mg/dL (200); Creatinine, Serum 1.01 mg/dL (0.70-1.30); EST Glomerular Filtration Rate 76 mL/min (>60); Est Glom Filt Rate - Afr Amer 92 mL/min (>60); Globulin 3.7 g/dL (2.2-4.2); Glucose 98 mg/dL (74-106); High Density Lipoprotein 86 mg/dL; PSA,Total - Annual Screen 0.54 ng/mL (0.00-4.00); Potassium 4.3 mmol/L (3.5-5.1); Protein, Total 7.4 g/dL (6.4-8.2); Sodium Level 140 mmol/L (136-145); Triglycerides 74 mg/dL; Uric Acid 7.3 mg/dL (3.5-7.2); Very Low Density Lipoprotein 15 mg/dL (5-40)
== END | disposition home or self-care (01) ==
LOC: LAB 06:55
PROVIDERS: PCP Family Medicine; Referring Provider Family Medicine; Visit Provider Family Medicine
DX: I10 Essential (primary) hypertension (principal); M10.9 Gout, unspecified; Z12.5 Encounter for screening for malignant neoplasm of prostate
CPT/HCPCS: 36415; 80053; 80061; 84153; 84550; 85025; G0103

== ENCOUNTER → 2022-10-30 | Outpatient (CLI) | payer MEDICARE, BC, SELFPAY ==
[2022-10-30 08:13] LABS: ALB/GLOB Ratio 1.1 RATIO (0.9-2.4); AST(SGOT) 18 U/L (15-37); Alanine Aminotransfer ALT/SGPT 29 U/L (16-61); Albumin, Serum 3.6 g/dL (3.2-5.0); Alkaline Phosphatase 57 U/L (45-117); Anion Gap 4 (5-15); BUN 18 mg/dL (7-18); Calcium,Total 9.1 mg/dL (8.5-10.1); Chloride 107 mmol/L (98-107); Cholesterol 192 mg/dL (200); Creatinine, Serum 1.06 mg/dL (0.70-1.30); EST Glomerular Filtration Rate 72 mL/min (>60); Est Glom Filt Rate - Afr Amer 87 mL/min (>60); Globulin 3.4 g/dL (2.2-4.2); Glucose 96 mg/dL (74-106); High Density Lipoprotein 78 mg/dL; Potassium 4.3 mmol/L (3.5-5.1); Sodium Level 139 mmol/L (136-145); Triglycerides 85 mg/dL; Very Low Density Lipoprotein 17 mg/dL (5-40)
== END | disposition home or self-care (01) ==
LOC: LAB 06:26
PROVIDERS: PCP Family Medicine; Referring Provider Family Medicine; Visit Provider Family Medicine
DX: I10 Essential (primary) hypertension (principal); E78.5 Hyperlipidemia, unspecified; M10.9 Gout, unspecified
CPT/HCPCS: 36415; 80053; 80061; 84550

== ENCOUNTER → 2023-05-03 | Outpatient (CLI) | payer MEDICARE, BC, SELFPAY ==
[2023-05-03 07:52] LABS: Absolute Lymphocyte Count 2.16 X10^3/uL (0.83-4.51); Absolute Neutrophil Count 2.8 X10^3/uL (2.0-7.7); Basophil# 0.04 X10^3/uL; Basophil% 0.7 % (0-1); Eosinophil# 0.22 X10^3/uL; Eosinophils% 3.7 % (0-5); Hematocrit 41.6 % (40-54); Hemoglobin 13.1 g/dL (13.0-16.5); Lymphocyte # 2.16 X10^3/ul (0.83-4.51); Lymphocyte % 36.7 % (19-41); Mean Corp Hgb Conc 31.5 g/dL (32-36); Mean Corpuscular Hgb 30.7 pg (27.0-32.0); Mean Corpuscular Volume 97.4 fL (80-94); Mean Platelet Vol. 10.5 fl (6.2-12.0); Monocyte% 10.2 % (0-10); NRBC Flagged by Analyzer 0 % (0-5); Neutrophil # 2.84 X10^3/uL (2.7-7.7); Neutrophil % 48.4 % (47-70); Platelet Count 217 K/mm3 (150-450); Red Blood Count 4.27 M/mm3 (4.6-6.2); White Blood Count 5.9 K/mm3 (4.4-11.0)
[2023-05-03 09:00] LABS: AST(SGOT) 19 U/L (15-37); Alanine Aminotransfer ALT/SGPT 32 U/L (16-61); Albumin, Serum 3.4 g/dL (3.2-5.0); Alkaline Phosphatase 49 U/L (45-117); Anion Gap 5 (5-15); BUN 23 mg/dL (7-18); BUN/Creat Ratio 21.7 RATIO (10-20); Calcium,Total 8.9 mg/dL (8.5-10.1); Chloride 108 mmol/L (98-107); Cholesterol 204 mg/dL (200); Creatinine, Serum 1.06 mg/dL (0.70-1.30); EST Glomerular Filtration Rate 72 mL/min (>60); Est Glom Filt Rate - Afr Amer 87 mL/min (>60); Globulin 3.4 g/dL (2.2-4.2); Glucose 88 mg/dL (74-106); High Density Lipoprotein 90 mg/dL; PSA,Total - Annual Screen 0.56 ng/mL (0.00-4.00); Protein, Total 6.8 g/dL (6.4-8.2); Sodium Level 140 mmol/L (136-145); Triglycerides 65 mg/dL; Uric Acid 6.7 mg/dL (3.5-7.2); Very Low Density Lipoprotein 13 mg/dL (5-40)
== END | disposition home or self-care (01) ==
PROVIDERS: PCP Family Medicine; Referring Provider Family Medicine; Visit Provider Family Medicine
DX: I10 Essential (primary) hypertension (principal); E78.5 Hyperlipidemia, unspecified; M10.9 Gout, unspecified; Z12.5 Encounter for screening for malignant neoplasm of prostate
CPT/HCPCS: 36415; 80053; 80061; 84153; 84550; 85025; G0103

== ENCOUNTER → 2023-11-05 | Outpatient (CLI) | payer MEDICARE, BC, SELFPAY ==
[2023-11-05 07:10] LABS: Absolute Lymphocyte Count 2.44 X10^3/uL (0.83-4.51); Absolute Neutrophil Count 2.8 X10^3/uL (2.0-7.7); Basophil# 0.03 X10^3/uL; Basophil% 0.5 % (0-1); Eosinophil# 0.18 X10^3/uL; Hematocrit 42.3 % (40-54); Hemoglobin 13.6 g/dL (13.0-16.5); Lymphocyte # 2.44 X10^3/ul (0.83-4.51); Lymphocyte % 40.8 % (19-41); Mean Corp Hgb Conc 32.2 g/dL (32-36); Mean Corpuscular Hgb 31.1 pg (27.0-32.0); Mean Corpuscular Volume 96.6 fL (80-94); Mean Platelet Vol. 10.6 fl (6.2-12.0); Monocyte# 0.52 X10^3/uL; Monocyte% 8.7 % (0-10); NRBC Flagged by Analyzer 0 % (0-5); Neutrophil # 2.79 X10^3/uL (2.7-7.7); Neutrophil % 46.7 % (47-70); Platelet Count 218 K/mm3 (150-450); RBC Distribution Width CV 13.7 % (11.6-14.6); RBC Distribution Width SD 48.8 fl (35.1-43.9); Red Blood Count 4.38 M/mm3 (4.6-6.2)
[2023-11-05 07:30] LABS: ALB/GLOB Ratio 1.1 RATIO (0.9-2.4); AST(SGOT) 20 U/L (15-37); Alanine Aminotransfer ALT/SGPT 29 U/L (16-61); Albumin, Serum 3.7 g/dL (3.2-5.0); Alkaline Phosphatase 58 U/L (45-117); Anion Gap 2 (5-15); BUN 23 mg/dL (7-18); BUN/Creat Ratio 24.7 RATIO (10-20); Chloride 109 mmol/L (98-107); Cholesterol 206 mg/dL (200); Creatinine, Serum 0.93 mg/dL (0.70-1.30); EST Glomerular Filtration Rate 83 mL/min (>60); Est Glom Filt Rate - Afr Amer 100 mL/min (>60); Globulin 3.3 g/dL (2.2-4.2); Glucose 103 mg/dL (74-106); High Density Lipoprotein 86 mg/dL; Potassium 4.4 mmol/L (3.5-5.1); Sodium Level 139 mmol/L (136-145); Triglycerides 44 mg/dL; Very Low Density Lipoprotein 9 mg/dL (5-40)
== END | disposition home or self-care (01) ==
LOC: LAB 06:22
PROVIDERS: PCP Family Medicine; Referring Provider Family Medicine; Visit Provider Family Medicine
DX: I10 Essential (primary) hypertension (principal); E78.5 Hyperlipidemia, unspecified; M10.9 Gout, unspecified; Z51.81 Encounter for therapeutic drug level monitoring
CPT/HCPCS: 36415; 80053; 80061; 84550; 85025

== ENCOUNTER → 2024-10-22 | Outpatient (CLI) | payer MEDICARE, BC, SELFPAY ==
[2024-10-22 08:16] LABS: Absolute Lymphocyte Count 2.24 X10^3/uL (0.83-4.51); Absolute Neutrophil Count 3.1 X10^3/uL (2.0-7.7); Basophil# 0.04 X10^3/uL; Basophil% 0.7 % (0-1); Eosinophil# 0.15 X10^3/uL; Eosinophils% 2.5 % (0-5); Hematocrit 41.3 % (40-54); Hemoglobin 13.3 g/dL (13.0-16.5); Lymphocyte # 2.24 X10^3/ul (0.83-4.51); Lymphocyte % 36.8 % (19-41); Mean Corp Hgb Conc 32.2 g/dL (32-36); Mean Corpuscular Hgb 31.1 pg (27.0-32.0); Mean Corpuscular Volume 96.5 fL (80-94); Mean Platelet Vol. 11.3 fl (6.2-12.0); Monocyte# 0.58 X10^3/uL; Monocyte% 9.5 % (0-10); NRBC Flagged by Analyzer 0 % (0-5); Neutrophil # 3.05 X10^3/uL (2.7-7.7); Neutrophil % 50.2 % (47-70); Platelet Count 217 K/mm3 (150-450); RBC Distribution Width CV 13.9 % (11.6-14.6); RBC Distribution Width SD 49.2 fl (35.1-43.9); Red Blood Count 4.28 M/mm3 (4.6-6.2); White Blood Count 6.1 K/mm3 (4.4-11.0)
[2024-10-22 09:17] LABS: ALB/GLOB Ratio 1.6 RATIO (0.9-2.4); AST(SGOT) 22 U/L (<=37); Alanine Aminotransfer ALT/SGPT 21 U/L (<=46); Alkaline Phosphatase 60 U/L (40-129); Anion Gap 11 (5-15); BUN 28 mg/dL (4-19); BUN/Creat Ratio 28.8 RATIO (10-20); Calcium,Total 9.1 mg/dL (7.6-11.0); Carbon Dioxide 20.4 mmol/L (21.0-32.0); Chloride 107 mmol/L (98-108); Cholesterol 186 mg/dL (<=200); Creatinine, Serum 0.98 mg/dL (0.70-1.20); EST Glomerular Filtration Rate 78 (>60); Globulin 2.5 g/dL (2.2-4.2); Glucose 84 mg/dL (70-99); High Density Lipoprotein 69 mg/dL; Low Density Lipoprotein Calc. 102 mg/dL; Potassium 4.8 mmol/L (3.3-5.1); Protein, Total 6.5 g/dL (5.9-8.4); Sodium Level 138 mmol/L (133-145); Total Bilirubin 0.32 mg/dL (0.00-1.30); Triglycerides 79 mg/dL; Uric Acid 6.6 mg/dL (3.5-7.2); Very Low Density Lipoprotein 16 mg/dL (5-40); cholesterol:hdl ratio screen 2.71
== END | disposition home or self-care (01) ==
LOC: LAB 06:56
PROVIDERS: PCP Family Medicine; Referring Provider Family Medicine; Visit Provider Family Medicine
DX: I10 Essential (primary) hypertension (principal); M10.9 Gout, unspecified
CPT/HCPCS: 36415; 80053; 80061; 84550; 85025